=== PATIENT | female | born 1975 | race Caucasian/White ===

== ENCOUNTER 2024-10-29 15:10 | Inpatient (IN) | payer OTHER, SELFPAY ==
[2024-10-15 13:48] LABS: Hematocrit 40.3 % (37.0-47.0); Hemoglobin 13.6 g/dL (12.0-16.0); Mean Corp Hgb Conc. 33.7 g/dL (33.0-37.0); Mean Corpuscular Hgb 33.7 pg (27.0-31.0); Mean Platelet Volume 9.8 fL (7.4-10.4); Platelet Count 250 10^3/uL (130-400); Red Blood Cell Count 4.03 10^6/uL (4.20-5.40); Red Cell Dist. Width 14.2 % (11.5-14.5); White Blood Cell Count 8.6 10^3/uL (4.8-10.8)
[2024-10-15 14:27] VITALS: BMI 27.7
[2024-10-15 16:30] LABS: Blood Urea Nitrogen 31 mg/dl (7-17); Calcium 9.7 mg/dl (8.4-10.2); Carbon Dioxide 32 mmol/L (22-30); Chloride 90 mmol/L (98-107); Estimated Creatinine Clearance 17 ml/min; Glucose 84 mg/dl (70-99); Potassium 4.5 mmol/L (3.5-5.1); Sodium 140 mmol/L (135-145)
[2024-10-29] VITALS (15 sets, daily range): BP systolic 117–171; BP diastolic 64–92; BMI 27.7
--- NOTE | 2024-10-29 08:52 | HP.FOC2 ---
Focused History & Physical
Chief Complaint
HPI:
Chief Complaint: Incisional hernia
HPI / Indication for Planned Procedure: Patient is a 49-year-old female with a previous abdominal surgical history of having undergone robotic assisted laparoscopic reversal of end colostomy, and prior to that Bobby procedure. She has had a
large midline incisional hernia becoming increasingly symptomatic. Presents today for scheduled operative correction.
Relevant Past Medical History: Other (Hypertension, asthma, COPD, CKD, hypothyroidism, history of methamphetamine abuse, primary hyperaldosteronism,)
Relevant Social History: Tobacco Use
Relevant Family History: Negative
Relevant Past Surgical History: Positive for (Bobby procedure, reversal of end colostomy, AV fistula left upper extremity, AV fistula revision)
Review of Systems
Review of Pertinent Systems: All Systems Negative
Medication
See Medication form for detailed medications: Yes
Medication List (including Herbals & OTC):
carvedilol 25 mg tablet 25 mg PO .HS ON MOWEFR in the evening after dialysis for blood pressure 05/28/22
fluticasone 100 mcg-salmeterol 50 mcg/dose blistr powdr for inhalation (Advair Diskus) 1 inh inhalation R BID Lung/breathing issues 05/28/22
nifedipine 60 mg tablet,extended release 60 mg PO HS Blood pressure 05/28/22
atorvastatin 80 mg tablet 80 mg PO QPM High cholesterol 11/06/22
cyanocobalamin (vitamin B-12) 1,000 mcg tablet 1,000 mcg PO DAILY Supplement 11/06/22
levothyroxine 125 mcg tablet 125 mcg PO DAILY AT 0700 Thyroid 11/06/22
fluticasone propionate 50 mcg/actuation nasal spray,suspension 1 spray intranasal BID PRN Congestion 11/22/22
sucroferric oxyhydroxide 500 mg chewable tablet (Velphoro) 500 mg PO BID 04/09/23
carvedilol 25 mg tablet 25 mg PO .BID ON on for blood pressure 11/28/23
acetaminophen 325 mg tablet 650 mg (2 x 325 mg) PO Q6H PRN moderate pain 30 days #90 tabs 12/01/23
albuterol 90 mcg-budesonide 80 mcg/actuation HFA aerosol inhaler 2 inh inhalation ONCE PRN sob 10/22/24
Medications Reviewed: Yes
Allergies and Reactions
Patient has Allergies: No
Noted Allergies and Reactions:
Allergy/AdvReac Type Severity Reaction Status Date / Time
No Known Allergies Allergy Verified 10/22/24 13:07
Pertinent Physical Exam
All Other Systems: Negative
Head/Neck: Normal
Lungs: Normal
Heart: Normal
Abdomen: Other (Large midline laparotomy scar. Left side old ostomy surgical scar. Large midline incisional hernia soft, reducible, nontender.)
Extremities: Normal
Neurological: Normal
Diagnosis / Assessment
49-year-old female with large upper midline incisional hernia presenting for scheduled operative correction
Plan / Procedure
Open retrorectus mesh repair incisional hernias
Anesthesia/Sedation to be done by Anesthesia Provider: Yes
--- NOTE | 2024-10-29 09:01 | W.SUR.PREOP ---
Pre-Operative Surgical Note
-
I have examined this patient prior to the performance of the scheduled procedure.
The patient's condition is unchanged from the time of the current History and
Physical and the patient is able to undergo the scheduled procedure.
[2024-10-29] MEDS: TYLENOL 1000 MG PO (09:19)
--- NOTE | 2024-10-29 14:30 | W.IMMPOSTOP ---
Addendum entered and electronically signed by Colby Johnson MD 10/29/24 15:37:
The assistance of Sherley Rivera was required due to the complexity of the procedure. During the procedure Sherley Goins PA-c assisted with retraction for tissue exposure, and closure of the incision site with myself.
#[id number]
Original Note:
Surgical Immed Post Op Note
-
Primary Surgeon: Alex
Assisting Surgeon: Sherley Mancini PA-c
Pre-op Diagnosis: Incisional hernias
Post-op Diagnosis: Incisional hernias; spanning 18 cm in maximal length
Procedure Performed: Open retrorectus mesh repair incisional hernias; Bard soft mesh 35 cm x 16 cm
Anesthesia Type: GETA +0.25% Marcaine
Specimen / Cultures: None
Estimated Blood Loss: 22 mL
Complications: None immediate
Operative Findings: Numerous incisional hernia spanning essentially entire length of previous laparotomy incision. Total vertical length of hernias 18 cm, maximal with approaching 6 cm. Open retrorectus mesh repair. Bard soft mesh 35 cm
vertically by 16 cm wide. 4 transfascial sutures placed along lateral borders of mesh to region of semilunar line anteriorly. Closure of peritoneal lining/posterior sheath with 2-0 PDS STRATAFIX spiral suture. Closure of the linea alba from
xiphoid to pubis with #1 PDS STRATAFIX symmetric suture.
Plan: Routine postop care
N.p.o. except ice chips and sips tonight -no lysis of adhesions but monitor for postoperative ileus due to laparotomy
CURRICULUM DEVELOPMENT MANAGER for postoperative pain control initial 24 to 48 hours
Nephrology service consulted -end-stage renal disease on hemodialysis
Updated patient's significant other postoperatively via phone call.
[2024-10-29] MEDS: SUBLIMAZE 50 MCG IV (14:52)
[2024-10-29 15:30] LABS: Hematocrit 35.9 % (37.0-47.0); Hemoglobin 11.6 g/dL (12.0-16.0); Mean Corp Hgb Conc. 32.3 g/dL (33.0-37.0); Mean Corpuscular Hgb 33.6 pg (27.0-31.0); Mean Corpuscular Volume 104.1 fL (81.0-99.0); Mean Platelet Volume 9.2 fL (7.4-10.4); Platelet Count 244 10^3/uL (130-400); Red Blood Cell Count 3.45 10^6/uL (4.20-5.40); Red Cell Dist. Width 14.3 % (11.5-14.5); White Blood Cell Count 13.8 10^3/uL (4.8-10.8)
[2024-10-29 15:40] LABS: Blood Urea Nitrogen 77 mg/dl (7-17); Calcium 8.9 mg/dl (8.4-10.2); Carbon Dioxide 24 mmol/L (22-30); Chloride 94 mmol/L (98-107); Estimated Creatinine Clearance 9 ml/min; Glucose 99 mg/dl (70-99); Potassium 5.7 mmol/L (3.5-5.1); Sodium 133 mmol/L (135-145); eGFR 5.45
[2024-10-29] MEDS: DILAUDID PCA 30 IV (15:45)
--- NOTE | 2024-10-29 16:45 | PTCARENOTE ---
10/29- Patient arrives from PACU with Hydromorphone EMT DRIVER intact with no continuous rate. Patient self-administers boluses at 0.2mg per bolus with a max of 1.2mg/hour. Currently NPO and to remain NPO until morning as per Surgeon. Patient 98% on 2L
O2. Removed O2, and patient POX=96% on RA without issue. Incision site and surgical dressing CDI. Patient denies any current needs. She is aware of how to use EMT DRIVER pump.
[2024-10-29 16:52] LABS: Glucose - Point of Care 104 mg/dl (70-99)
--- NOTE | 2024-10-29 17:18 | W.CON.NEPH ---
Consultation
-
Date/Time Consultation Requested: 10/29/2024 at 11 AM
Date/Time Consultation Performed: 10/29/2024 at 4 PM
Requesting Provider: Dr. Johnson
Performing Provider: Dr Marcus Amin
Reason for Consultation: dialysis management
Medical History
-
Chief Complaint: end-stage renal disease
History of Present Illness:
The patient is a 48-year-old female with a
past medical history of end-stage renal disease since November
2022 following a COVID admission. She is maintained on dialysis
every Friday, Friday, and Friday at the [facility].
She has a history of diverticulitis and underwent Bobby's
resection with creation of short rectal stump in November of 2022,
which was subsequently complicated by stump dehiscence and an
incisional hernia at the colostomy site then robotic takedown of her colostomy site
and hernia repair.
She has had a large midline incisional hernia becoming increasingly symptomatic. Presents today for scheduled operative correction.
Real crisis intervention counselor for dialysis management
the patient was seen in the PACU postoperatively. She did well with no complications no significant blood loss. Discuss with the surgeon
Past Medical History
PAST MEDICAL HISTORY: Includes:
1. End-stage renal disease since November of 2022.
2. Multi-drug resistant hypertension.
3. History of diverticulitis with aforementioned complications from
November of 2022 with colostomy.
4. Anemia.
5. COPD.
6. Hypothyroidism.
7. History of stroke.
8. Hyperphosphatemia.
9. Left upper extremity AV fistula.
Social History
former smoker
Family History
No renal disease
Allergies / Home Medications
Allergy/AdvReac Type Severity Reaction Status Date / Time
No Known Allergies Allergy Verified 10/29/24 09:11
�Medication �Instructions �Recorded �Confirmed �Type
carvedilol 25 mg tablet 25 mg PO .HS ON MOWEFR in the 05/28/22 10/29/24 History
evening after dialysis for blood
pressure
fluticasone 100 mcg-salmeterol 50 1 inh inhalation R BID 05/28/22 10/29/24 History
mcg/dose blistr powdr for Lung/breathing issues
inhalation (Advair Diskus)
nifedipine 60 mg tablet,extended 60 mg PO HS Blood pressure 05/28/22 10/29/24 History
release
atorvastatin 80 mg tablet 80 mg PO QPM High cholesterol 11/06/22 10/29/24 History
cyanocobalamin (vitamin B-12) 1,000 mcg PO DAILY Supplement 11/06/22 10/29/24 History
1,000 mcg tablet
levothyroxine 125 mcg tablet 125 mcg PO DAILY AT 0700 Thyroid 11/06/22 10/29/24 History
fluticasone propionate 50 1 spray intranasal BID PRN 11/22/22 10/29/24 History
mcg/actuation nasal Congestion
spray,suspension
sucroferric oxyhydroxide 500 mg 500 mg PO BID 04/09/23 10/29/24 History
chewable tablet (Velphoro)
carvedilol 25 mg tablet 25 mg PO .BID ON [facility] on 11/28/23 10/29/24 History
Zfme-Baxle-Qlj-Sun for blood
pressure
acetaminophen 325 mg tablet 650 mg (2 x 325 mg) PO Q6H PRN 12/01/23 10/29/24 Rx
moderate pain 30 days #90 tabs
albuterol 90 mcg-budesonide 80 2 inh inhalation ONCE PRN sob 10/22/24 10/29/24 History
mcg/actuation HFA aerosol inhaler
Review of Systems
-
tired and fatigue mild abdominal pain
All other systems: Negative unless noted
Physical Exam
Vital Signs
Vital Signs
Temp Pulse Resp BP Pulse Ox
98.3 F 59 18 157/81 97
10/29/24 17:07 10/29/24 17:07 10/29/24 17:07 10/29/24 17:07 10/29/24 17:07
Lab Results
WBC 13.8 10^3/uL (4.8-10.8) H 10/29/24 15:14
RBC 3.45 10^6/uL (4.20-5.40) L 10/29/24 15:14
Hgb 11.6 g/dL (12.0-16.0) L 10/29/24 15:14
Hct 35.9 % (37.0-47.0) L 10/29/24 15:14
Plt Count 244 10^3/uL (130-400) 10/29/24 15:14
Sodium 133 mmol/L (135-145) L 10/29/24 15:14
Potassium 5.7 mmol/L (3.5-5.1) H 10/29/24 15:14
Chloride 94 mmol/L (98-107) L 10/29/24 15:14
Carbon Dioxide 24 mmol/L (22-30) 10/29/24 15:14
BUN 77 mg/dl (7-17) H 10/29/24 15:14
Creatinine 8.3 mg/dL (0.6-1.0) H* 10/29/24 15:14
eGFR 5.45 10/29/24 15:14
Glucose 99 mg/dl (70-99) 10/29/24 15:14
Calcium 8.9 mg/dl (8.4-10.2) 10/29/24 15:14
Physical Exam
General no acute distress
HEENT no cephalic atraumatic extraocular muscle intact no scleral icterus no JVD neck supple
lungs clear to auscultation bilateral
heart regular S1-S2 positive
abdomen incisional wound
extremities no edema pulses present bilateral
Neurologically nonfocal alert and oriented x 3
Skin no lesions no abrasions no petechiae
Psych normal affect no bizarre behavior
Data Reviewed
-
Labs: Labs Reviewed by me
Assessment/Plan
-
Impression:
Status post hernia repair
End-stage renal disease Friday [facility] dialysis unit
Multidrug resistant hypertension
Anemia of chronic kidney disease
History of COPD
Hypothyroidism
History of CVA
Hyperphosphatemia
Left upper extremity AV fistula
Plan:
- Dialysis schedule (MWF)
will do dialysis tomorrow off schedule as patient was in the OR today
potassium 5.7 will temporize as needed
reviewed outpatient dialysis records her EDW is 84.5 kg
heparin free postsurgical
see dialysis orders
discuss with dialysis nurse
[2024-10-29] MEDS: OFIRMEV 100 IV (18:34)
[2024-10-29] MEDS: NSS 1000 IV (18:34)
[2024-10-29] MEDS: ADVAIR HFA 45/21 MCG INHALER 2 PUFF INH (20:29)
[2024-10-29] MEDS: PROCARDIA XL (EXTENDED RELEASE) 60 MG PO (21:06)
[2024-10-29] MEDS: COREG 25 MG PO (21:08)
[2024-10-29 21:20] LABS: Glucose - Point of Care 113 mg/dl (70-99)
[2024-10-30] MEDS: OFIRMEV 100 IV ×3 (00:07→12:22)
[2024-10-30 06:00] VITALS: BMI 29.5
[2024-10-30] MEDS: SYNTHROID 125 MCG PO (06:02)
[2024-10-30 07:30] VITALS: BP 176/102
[2024-10-30] MEDS: ADVAIR HFA 45/21 MCG INHALER 2 PUFF INH ×2 (08:07→20:07)
[2024-10-30 08:34] LABS: Hematocrit 33.1 % (37.0-47.0); Mean Corp Hgb Conc. 33.2 g/dL (33.0-37.0); Mean Corpuscular Hgb 33.8 pg (27.0-31.0); Mean Corpuscular Volume 101.8 fL (81.0-99.0); Mean Platelet Volume 9.4 fL (7.4-10.4); Platelet Count 241 10^3/uL (130-400); Red Blood Cell Count 3.25 10^6/uL (4.20-5.40); Red Cell Dist. Width 14.3 % (11.5-14.5); White Blood Cell Count 17.6 10^3/uL (4.8-10.8)
[2024-10-30 08:44] LABS: Blood Urea Nitrogen 88 mg/dl (7-17); Calcium 9.2 mg/dl (8.4-10.2); Carbon Dioxide 16 mmol/L (22-30); Chloride 94 mmol/L (98-107); Estimated Creatinine Clearance 9 ml/min; Glucose 91 mg/dl (70-99); Sodium 129 mmol/L (135-145); eGFR 4.69
[2024-10-30] MEDS: NSS (PRESERVATIVE FREE) 10 ML IV (09:09)
[2024-10-30] MEDS: PROTONIX IV 40 MG IV (09:09)
--- NOTE | 2024-10-30 09:50 | W.PN.NEPH.HD ---
Assessment
-
Regular schedule Friday will get dialysis again tomorrow as we will on a holiday schedule
Progress Note - Hemodialysis
-
Date of Service: October 30, 2024
Duration: 3 hours (3.5)
Potassium Bath: 2
Calcium Bath: 2.5
Opti-Dialyzer: 160
Ultrafiltration: EDW
Blood Flow: 400
Dialysate Flow: 600
Heparin: No
EPO: Yes
[2024-10-30] MEDS: MANNITOL 25% 12.5 GRAMS IV (10:35)
--- NOTE | 2024-10-30 11:50 | W.PN.GS2 ---
Addendum entered and electronically signed by Albert Brandt MD 10/30/24 13:07:
Patient seen and examined. Agree with assessment plan as documented below.
Pain well-controlled. No nausea or vomiting. No flatus or BM. No ambulation postop. Afebrile. Currently on HD.
Gen: NAD
Abd: soft, NT/ND, non-peritoneal, binder in place and on HD (no taken down)
Patient is a 49 yo F with h/o ESRD on HD and prior Bobby's with subsequent colostomy reversal presenting for management of incisional hernias
POD #1 Open retrorectus mesh repair incisional hernia; Bard soft mesh 35 cm x 16 cm.
AFVSS, BP elevated this am
Recovering well. No major postoperative concerns.
--Trial of clears
--Continue PARK NATURALIST in the immediate post operative period
--Continue home meds
--OOB/Ambulate
--Nephrology following for HD
--Protonix for GI ppx
--Heparin SQ for VTE ppx
Original Note:
Today's Communication / Plan
-
Trial of clears
OOB/increase activity
Continue PARK NATURALIST
Assessment / Plan
-
49 yo female with h/o ESRD on HD and prior Bobby's with subsequent colostomy reversal presenting for management of incisional hernias
POD #1 Open retrorectus mesh repair incisional hernia; Bard soft mesh 35 cm x 16 cm.
AFVSS, BP elevated this am
Pain well controlled with PARK NATURALIST
Reactive leukocytosis noted
Await bowel recovery
--Trial of clears
--Continue PARK NATURALIST in the immediate post operative period
--Continue home meds
--OOB/Ambulate
--Nephrology following for HD
--Protonix for GI ppx
--Heparin SQ for VTE ppx
Subjective Data
-
Date of Service: October 30, 2024
Patient seen and examined at bedside with Dr. Brandt. On HD at bedside. Denies n/v. Not yet passing flatus. Good pain control with PARK NATURALIST.
Objective Data
-
Intake and Output
10/29/24 10/30/24 10/31/24
06:59 06:59 06:59
Intake Total 780 / 780
Output Total
Balance 755 / 755
Intake:
Oral fluids 480 / 480
IV fluids (Total) 300 / 300
NSS 100 / 100
Output:
Urine, Bray
Vital Signs
Temp Pulse Resp BP Pulse Ox
98.3 F 72 18 176/102 95
10/30/24 07:30 10/30/24 08:09 10/30/24 08:09 10/30/24 07:30 10/30/24 08:09
Lab Results
10/30/24 08:18
10/30/24 08:18
Calcium 9.2 mg/dl (8.4-10.2) 10/30/24 08:18
Physical Exam
-
GENERAL/NEURO: Awake, Alert, no distress
CHEST: Unlabored breathing
ABDOMEN: Soft, minimal generalized tenderness, Non-Distended, incision with intact silver dressing
[2024-10-30 12:20] VITALS: BP 113/65
[2024-10-30] MEDS: HEPARIN 5000 UNITS SC ×2 (12:22→19:47)
[2024-10-30] MEDS: COREG 25 MG PO ×2 (12:23→19:48)
--- NOTE | 2024-10-30 14:18 | CM ---
CM reviewed chart, patient seen bedside, initial assessment completed. Patient resides with her and brother in a single story home, three steps to enter. Patient denies use of DME, reports history of [facility] in past, denies SNF. Patient
confirms PCP Dr. Harris, pharmacy [facility], confirms prescription coverage. Patient denies insecurities at home. Patient confirms HD schedule at [facility] in [place]: M, W, Fr, 6:25 a.m. chair time (P: [phone], F: [phone]-
will need clinicals faxed upon d/c). General Surgery following. CM will continue to follow for all discharge planning needs.
Plan; home with family, outpatient HD, watch for VN needs.
[2024-10-30 15:07] VITALS: BP 112/68
[2024-10-30] MEDS: PROCARDIA XL (EXTENDED RELEASE) 60 MG PO (21:14)
[2024-10-30] MEDS: NSS 1000 IV (23:45)
[2024-10-30 23:55] VITALS: BP 124/72
[2024-10-31 06:00] VITALS: BMI 28.8
[2024-10-31] MEDS: SYNTHROID 125 MCG PO (06:54)
[2024-10-31] MEDS: ADVAIR HFA 45/21 MCG INHALER 2 PUFF INH ×2 (07:51→19:44)
[2024-10-31 08:03] VITALS: BP 132/73
[2024-10-31 08:06] LABS: Hematocrit 31.6 % (37.0-47.0); Mean Corp Hgb Conc. 31.6 g/dL (33.0-37.0); Mean Corpuscular Hgb 33.6 pg (27.0-31.0); Mean Platelet Volume 9.5 fL (7.4-10.4); Platelet Count 211 10^3/uL (130-400); Red Blood Cell Count 2.98 10^6/uL (4.20-5.40); Red Cell Dist. Width 14.6 % (11.5-14.5); White Blood Cell Count 9.3 10^3/uL (4.8-10.8)
[2024-10-31] MEDS: HEPARIN 5000 UNITS SC ×2 (08:09→20:34)
[2024-10-31] MEDS: NSS (PRESERVATIVE FREE) 10 ML IV (08:09)
[2024-10-31] MEDS: COREG 25 MG PO ×2 (08:09→20:34)
[2024-10-31] MEDS: PROTONIX IV 40 MG IV (08:09)
[2024-10-31 08:34] LABS: Blood Urea Nitrogen 48 mg/dl (7-17); Carbon Dioxide 26 mmol/L (22-30); Chloride 92 mmol/L (98-107); Estimated Creatinine Clearance 11 ml/min; Glucose 82 mg/dl (70-99); Sodium 131 mmol/L (135-145); eGFR 6.06
--- NOTE | 2024-10-31 10:15 | W.PN.GS2 ---
Addendum entered and electronically signed by Albert Brandt MD 10/31/24 10:30:
Patient seen and examined. Agree with assessment plan as documented below.
Reports incisional soreness particularly with movement. No nausea or vomiting. No flatus or BM. No fevers.
Gen: NAD
Abd: soft, tender to palpation overlying incision, ND, obese, non-peritoneal, midline dressing with some shadowing, binder in place
Patient is a 49 yo female with h/o ESRD on HD and prior Bobby's with subsequent colostomy reversal presenting for management of incisional hernias
POD #2 Open retrorectus mesh repair incisional hernia; Bard soft mesh 35 cm x 16 cm.
AFVSS, BP elevated this am
Pain well controlled with INDUCTOR TESTER, usage decreasing over the last 24hours, transition to PO
Leukocytosis resolved
H/O chronic anemia secondary to ESRD
Await bowel recovery, tolerating clears thus far
--Advance to full liquids
--Transition to PO Tylenol, Oxycodone and IV Dilaudid PRN for pain
--Continue home meds
--OOB/Ambulate
--Nephrology following for HD
--Protonix for GI ppx
--Heparin SQ for VTE ppx
Original Note:
Today's Communication / Plan
-
FLD
PRN analgesics
Assessment / Plan
-
49 yo female with h/o ESRD on HD and prior Bobby's with subsequent colostomy reversal presenting for management of incisional hernias
POD #2 Open retrorectus mesh repair incisional hernia; Bard soft mesh 35 cm x 16 cm.
AFVSS, BP elevated this am
Pain well controlled with INDUCTOR TESTER, usage decreasing over the last 24hours
Leukocytosis resolved
H/O chronic anemia secondary to ESRD
Await bowel recovery, tolerating clears thus far
--Advance to full liquids
--Trend labs
--Transition to PO Tylenol, Oxycodone and IV dilaudid prn for pain
--Continue home meds
--OOB/Ambulate
--Nephrology following for HD
--Protonix for GI ppx
--Heparin SQ for VTE ppx
Subjective Data
-
Date of Service: October 31, 2024
Patient seen and examined at bedside with Dr. Brandt. Pain well managed. Not much bowel activity yet including flatus. Denies n/v. Tolerating clears.
Objective Data
-
Intake and Output
10/30/24 10/31/24 11/01/24
06:59 06:59 06:59
Intake Total 780 / 780 240 / 240
Output Total 25 / 25
Balance 755 / 755 240 / 240
Intake:
Oral fluids 480 / 480 240 / 240
IV fluids (Total) 300 / 300
NSS 100 / 100
Output:
Urine, Bray 25 / 25
Other:
Number of approximated MODERATE 2
amounts of urine
Vital Signs
Temp Pulse Resp BP Pulse Ox
97.7 F 82 18 132/73 96
10/31/24 08:03 10/31/24 08:09 10/31/24 08:03 10/31/24 08:09 10/31/24 08:03
Lab Results
10/31/24 07:18
10/31/24 07:18
Calcium 9.0 mg/dl (8.4-10.2) 10/31/24 07:18
Physical Exam
-
GENERAL/NEURO: Awake, Alert, no distress
CHEST: Unlabored breathing
ABDOMEN: Soft, minimal generalized tenderness, Non-Distended, incision with intact silver dressing
[2024-10-31] MEDS: DILAUDID 1 MG IV ×3 (11:25→20:34)
--- NOTE | 2024-10-31 13:25 | W.PN.NEPH.HD ---
Progress Note - Hemodialysis
-
Date of Service: October 31, 2024
Duration: 3 hours (3.5)
Potassium Bath: 2
Calcium Bath: 2.5
Opti-Dialyzer: 160
Ultrafiltration: EDW
Blood Flow: 400
Dialysate Flow: 600
Heparin: No
EPO: Yes
[2024-10-31 15:04] VITALS: BP 140/78
[2024-10-31] MEDS: PROCARDIA XL (EXTENDED RELEASE) 60 MG PO (22:50)
[2024-10-31 23:22] VITALS: BP 145/83
[2024-11-01] MEDS: DILAUDID 1 MG IV ×4 (00:29→18:02)
[2024-11-01 06:00] VITALS: BMI 28.2
[2024-11-01] MEDS: SYNTHROID 125 MCG PO (06:35)
[2024-11-01 07:39] VITALS: BP 130/75
[2024-11-01 07:47] LABS: Hematocrit 32.4 % (37.0-47.0); Hemoglobin 10.7 g/dL (12.0-16.0); Mean Corpuscular Hgb 33.6 pg (27.0-31.0); Mean Corpuscular Volume 101.9 fL (81.0-99.0); Mean Platelet Volume 9.5 fL (7.4-10.4); Platelet Count 211 10^3/uL (130-400); Red Blood Cell Count 3.18 10^6/uL (4.20-5.40); Red Cell Dist. Width 14.4 % (11.5-14.5); White Blood Cell Count 8.7 10^3/uL (4.8-10.8)
[2024-11-01] MEDS: ADVAIR HFA 45/21 MCG INHALER 2 PUFF INH ×2 (08:00→20:05)
[2024-11-01 08:24] LABS: Blood Urea Nitrogen 30 mg/dl (7-17); Calcium 9.5 mg/dl (8.4-10.2); Carbon Dioxide 28 mmol/L (22-30); Chloride 94 mmol/L (98-107); Estimated Creatinine Clearance 14 ml/min; Glucose 87 mg/dl (70-99); Potassium 4.2 mmol/L (3.5-5.1); Sodium 132 mmol/L (135-145); eGFR 8.74
[2024-11-01] MEDS: NSS (PRESERVATIVE FREE) 10 ML IV (08:48)
[2024-11-01] MEDS: PROTONIX IV 40 MG IV (08:48)
[2024-11-01] MEDS: HEPARIN 5000 UNITS SC ×2 (08:49→21:32)
--- NOTE | 2024-11-01 09:11 | W.PN.GS2 ---
Addendum entered and electronically signed by MINA James 11/01/24 12:33:
Hyponatremia in setting of ESRD: Improved s/p most recent HD. Nephrology following for electrolyte management/HD
Addendum entered and electronically signed by Albert Brandt MD 11/01/24 09:30:
Patient seen and examined. Agree with assessment plan as documented below.
Abdominal discomfort, but controlled with oral medications (has transitioned off ENGINEERING ANALYST). No nausea or vomiting. Reports passing flatus, no BM. Afebrile.
Gen: NAD
Abd: soft, NT/ND, non-peritoneal
Patient is a 49 yo F with h/o ESRD on HD and prior Bobby's with subsequent colostomy reversal presenting for management of incisional hernias
POD #3 Open retrorectus mesh repair incisional hernia; Bard soft mesh 35 cm x 16 cm.
AFVSS
Pain well controlled off ENGINEERING ANALYST
CBC stable, no leukocytosis
ESRD with next HD tomorrow
+flatus, tolerating FLD
--Advance to regular diet
--Transition to PO Tylenol, Oxycodone and IV Dilaudid PRN for pain
--Continue home meds
--OOB/Ambulate
--Nephrology following for HD
--Protonix for GI ppx
--Heparin SQ for VTE ppx
Tentative d/c tomorrow after HD if tolerating diet and pain controlled
Original Note:
Today's Communication / Plan
-
Advance diet
Assessment / Plan
-
49 yo female with h/o ESRD on HD and prior Bobby's with subsequent colostomy reversal presenting for management of incisional hernias
POD #3 Open retrorectus mesh repair incisional hernia; Bard soft mesh 35 cm x 16 cm.
AFVSS
Pain well controlled off ENGINEERING ANALYST
CBC stable, no leukocytosis
ESRD with next HD tomorrow
+flatus, tolerating FLD
--Advance to regular diet
--Transition to PO Tylenol, Oxycodone and IV dilaudid prn for pain
--Continue home meds
--OOB/Ambulate
--Nephrology following for HD
--Protonix for GI ppx
--Heparin SQ for VTE ppx
Tentative d/c tomorrow after HD if tolerating diet and pain controlled
Subjective Data
-
Date of Service: November 01, 2024
Patient seen and examined at bedside with Dr. Brandt. Pain present but well managed. Denies n/v. Passing a lot of flatus, no BM as of yet. Tolerating liquid diet.
Objective Data
-
Intake and Output
10/31/24 11/01/24 11/02/24
06:59 06:59 06:59
Intake Total 240 / 240 960 / 960
Balance 240 / 240 960 / 960
Intake:
Oral fluids 240 / 240 960 / 960
Other:
Number of approximated MODERATE 2 3
amounts of urine
Vital Signs
Temp Pulse Resp BP Pulse Ox
98.5 F 88 16 130/75 94
11/01/24 07:39 11/01/24 08:02 11/01/24 08:02 11/01/24 07:39 11/01/24 08:02
Lab Results
11/01/24 07:16
11/01/24 07:16
Calcium 9.5 mg/dl (8.4-10.2) 11/01/24 07:16
Physical Exam
-
GENERAL/NEURO: Awake, Alert, no distress
CHEST: Unlabored breathing
ABDOMEN: Soft, minimal generalized tenderness, Non-Distended, incision with intact silver dressing
--- NOTE | 2024-11-01 10:31 | PN.CDI ---
CDI
- -
CDI:
Physician Documentation Request
Admit Date: 10/29/24 15:10
Dear General Surgery,
Patient admitted for hernia repair.
Laboratory Tests
10/29/24 10/30/24 10/31/24
15:14 08:18 07:18
Sodium 133 L 129 L 131 L
11/01/24
07:16
Sodium 132 L
Based on the above, could you clarify in the progress notes, the appropriate diagnosis, if significant, that supports the above abnormalities and additional evaluation, monitoring and/or treatment rendered:
Hyponatremia
Abnormal lab value insignificant
Other
Use of terms such as suspected, likely, concern for, or probable (associated with a specific diagnosis that is being evaluated, monitored, or treated as if it exists) are acceptable and can be coded in the inpatient setting, when documented at the
time of discharge.
Thank you,
Pascale Hays RN, BSN
CDI Specialist
Available via [place] text
Please use your independent medical judgment in providing your response.
--- NOTE | 2024-11-01 11:55 | CM ---
CM reviewed chart, patient seen bedside with family. Patient denies needs from CM at this time. Clinicals faxed to [facility] [phone]. Per General Surgery note, tentative discharge tomorrow after dialysis. CM will continue to follow for
all discharge planning needs.
Plan; home with family, outpatient HD
[2024-11-01] MEDS: ROXICODONE 5 MG PO ×2 (13:17→21:39)
[2024-11-01 16:21] VITALS: BP 160/96
--- NOTE | 2024-11-01 18:25 | W.PN.NEPH.PH ---
Today's Communication / Plan
-
HD tomorrow
Assessment/Plan
-
Impression:
Status post hernia repair
End-stage renal disease Friday [facility] dialysis unit
Multidrug resistant hypertension
Anemia of chronic kidney disease
History of COPD
Hypothyroidism
History of CVA
Hyperphosphatemia
Left upper extremity AV fistula
Plan:
HD tomorrow, off schedule
Bp stable
tolerating diet
resume phos binder soon
d/c plan
-
-
Date of Service: November 01, 2024
CC / HPI / ROS
-
Chief Complaint:
ESRD
History of Present Illness:
s/p incisional hernia repair 10/29
BP stable
hb stable
on RA, no fever
Review of Systems:
no sob, no nv/
able to pass flatus
Labs
-
Labs:
WBC 8.7 10^3/uL (4.8-10.8) 11/01/24 07:16
RBC 3.18 10^6/uL (4.20-5.40) L 11/01/24 07:16
Hgb 10.7 g/dL (12.0-16.0) L 11/01/24 07:16
Hct 32.4 % (37.0-47.0) L 11/01/24 07:16
Plt Count 211 10^3/uL (130-400) 11/01/24 07:16
Sodium 132 mmol/L (135-145) L 11/01/24 07:16
Potassium 4.2 mmol/L (3.5-5.1) 11/01/24 07:16
Chloride 94 mmol/L (98-107) L 11/01/24 07:16
Carbon Dioxide 28 mmol/L (22-30) 11/01/24 07:16
BUN 30 mg/dl (7-17) H 11/01/24 07:16
Creatinine 5.6 mg/dL (0.6-1.0) H* 11/01/24 07:16
eGFR 8.74 11/01/24 07:16
Glucose 87 mg/dl (70-99) 11/01/24 07:16
Calcium 9.5 mg/dl (8.4-10.2) 11/01/24 07:16
Physical Exam
-
Vital Signs:
Vital Signs
Temp Pulse Resp BP Pulse Ox
98.1 F 88 18 160/96 99
11/01/24 16:21 11/01/24 16:21 11/01/24 16:21 11/01/24 16:21 11/01/24 16:21
Cardiovascular:: Regular rate and rhythm
Respiratory:: Bilateral: CTA
Lung Excursion:: Normal
Abdomen:: Soft and Tender (surg site)
Extremity Edema:: None: Bilateral:
Bray Catheter: No
[2024-11-01] MEDS: PROCARDIA XL (EXTENDED RELEASE) 60 MG PO (21:32)
[2024-11-01] MEDS: COREG 25 MG PO (21:34)
[2024-11-01 23:26] VITALS: BP 163/87
[2024-11-02] MEDS: ROXICODONE 5 MG PO ×3 (01:56→12:23)
[2024-11-02 06:00] VITALS: BMI 28.2
[2024-11-02] MEDS: SYNTHROID 125 MCG PO (06:17)
[2024-11-02] MEDS: ADVAIR HFA 45/21 MCG INHALER INH (07:35)
[2024-11-02 07:51] VITALS: BP 148/87
[2024-11-02] MEDS: HEPARIN 500 UNITS IV ×2 (08:05→09:05)
[2024-11-02] MEDS: PROTONIX IV 40 MG IV (08:17)
[2024-11-02] MEDS: HEPARIN 5000 UNITS SC (08:18)
[2024-11-02] MEDS: NSS (PRESERVATIVE FREE) 10 ML IV (08:18)
[2024-11-02] MEDS: COREG PO (08:54)
[2024-11-02 09:02] LABS: Hematocrit 30.8 % (37.0-47.0); Hemoglobin 10.5 g/dL (12.0-16.0); Mean Corp Hgb Conc. 34.1 g/dL (33.0-37.0); Mean Corpuscular Hgb 34.2 pg (27.0-31.0); Mean Corpuscular Volume 100.3 fL (81.0-99.0); Mean Platelet Volume 9.7 fL (7.4-10.4); Platelet Count 215 10^3/uL (130-400); Red Blood Cell Count 3.07 10^6/uL (4.20-5.40); Red Cell Dist. Width 14.1 % (11.5-14.5); White Blood Cell Count 8.3 10^3/uL (4.8-10.8)
[2024-11-02 09:46] LABS: Blood Urea Nitrogen 46 mg/dl (7-17); Calcium 9.2 mg/dl (8.4-10.2); Carbon Dioxide 23 mmol/L (22-30); Chloride 92 mmol/L (98-107); Estimated Creatinine Clearance 10 ml/min; Glucose 97 mg/dl (70-99); Potassium 3.9 mmol/L (3.5-5.1); Sodium 130 mmol/L (135-145); eGFR 5.87
[2024-11-02] MEDS: FLEXBUMIN 25% FOR HEMODIALYSIS 12.5 GRAMS IV (10:01)
--- NOTE | 2024-11-02 10:12 | W.PN.GS2 ---
Today's Communication / Plan
-
DC
Assessment / Plan
-
49 yo female with h/o ESRD on HD and prior Bobby's with subsequent colostomy reversal presenting for management of incisional hernias
POD #4 Open retrorectus mesh repair incisional hernia; Bard soft mesh 35 cm x 16 cm.
AFVSS
Pain well controlled off CLINICAL IMPLEMENTATION SPECIALIST
CBC stable, no leukocytosis
ESRD with next HD tomorrow
+flatus, tolerating FLD
--Advance to regular diet
--Transition to PO Tylenol, Oxycodone and IV dilaudid prn for pain
--Continue home meds
--OOB/Ambulate
--Nephrology following for HD
--Protonix for GI ppx
--Heparin SQ for VTE ppx
DC home after HD
Subjective Data
-
Date of Service: November 02, 2024
AFVSS, pain controlled, preston PO, passing flatus, denies n.v
Objective Data
-
Intake and Output
11/01/24 11/02/24 11/03/24
06:59 06:59 06:59
Intake Total 960 / 960 1080 / 1080
Balance 960 / 960 1080 / 1080
Intake:
Oral fluids 960 / 960 1080 / 1080
Other:
Number of approximated MODERATE 3 3
amounts of urine
Vital Signs
Temp Pulse Resp BP Pulse Ox
98 F 86 20 148/87 99
11/02/24 07:51 11/02/24 07:51 11/02/24 07:51 11/02/24 07:51 11/02/24 07:51
Lab Results
11/02/24 08:45
11/02/24 08:45
Calcium 9.2 mg/dl (8.4-10.2) 11/02/24 08:45
Physical Exam
-
Gen: NAD
bd: soft, obese, binder in place, aquacel with mild strikethrough
--- NOTE | 2024-11-02 10:13 | W.DS.TRANS ---
DC Summary - Flying I Instructor
-
Discharge Instructions:
Sleep Apnea Risk Low
Discharge Diagnosis/Procedures Incisional hernia. Open retrorectus mesh repair
of incisional hernia
Diet As tolerated,Regular
Additional Diets Smaller meals if experiencing abdominal bloating
/distention
Activity No strenuous activity
Additional Activity No lifting over 20 pounds for 6 weeks
postoperatively. Walking, standing, stairs and
routine daily light activities are all okay as
tolerated.
Driving Restrictions No driving if utilizing narcotics.
Bathing Restrictions OK to Shower
Wound Care May leave incision open to air or cover with dry
gauze dressing if drainage. Steri-Strips
typically peel off within 1 to 2 weeks of
surgery.
Instructions:
Stand-Alone Forms:
Changes to Home Medications: No
Discharge Medications:
DC Medications w/original date entered in [email or web address]
carvedilol 25 mg tablet 25 mg PO .HS ON MOWEFR in the evening after dialysis for blood pressure 05/28/22
fluticasone 100 mcg-salmeterol 50 mcg/dose blistr powdr for inhalation (Advair Diskus) 1 inh inhalation R BID Lung/breathing issues 05/28/22
nifedipine 60 mg tablet,extended release 60 mg PO HS Blood pressure 05/28/22
atorvastatin 80 mg tablet 80 mg PO QPM High cholesterol 11/06/22
cyanocobalamin (vitamin B-12) 1,000 mcg tablet 1,000 mcg PO DAILY Supplement 11/06/22
levothyroxine 125 mcg tablet 125 mcg PO DAILY AT 0700 Thyroid 11/06/22
fluticasone propionate 50 mcg/actuation nasal spray,suspension 1 spray intranasal BID PRN Congestion 11/22/22
sucroferric oxyhydroxide 500 mg chewable tablet (Velphoro) 500 mg PO BID Hyperphosphatemia 04/09/23
carvedilol 25 mg tablet 25 mg PO .BID ON TUTHSASU on for blood pressure 11/28/23
acetaminophen 325 mg tablet 650 mg (2 x 325 mg) PO Q6H PRN moderate pain 30 days #90 tabs 12/01/23
albuterol 90 mcg-budesonide 80 mcg/actuation HFA aerosol inhaler 2 inh inhalation ONCE PRN sob 10/22/24
Home Medication Changes
Pending Results: No
[2024-11-02 11:29] VITALS: BP 135/84
--- NOTE | 2024-11-02 11:39 | CM ---
Patient seen at bedside. Patient confirmed she has a ride home, currently getting HD. No needs anticipated. CM will continue to follow for discharge planning needs.
Plan; home with no needs anticipated
--- NOTE | 2024-11-02 11:57 | W.PN.NEPH.HD ---
Assessment
-
pt seen during HD
vitals stable
UF as tolerates
AVF function swell
return to home unit on
Progress Note - Hemodialysis
-
Date of Service: November 02, 2024
Duration: 30 minutes and 3 hours
Potassium Bath: 2
Calcium Bath: 2.5
Opti-Dialyzer: 160
Ultrafiltration: Other (2.5-3kg)
Blood Flow: 400
Dialysate Flow: 600
Heparin: yesx2
EPO: no
== END 2024-11-02 14:58 | disposition home or self-care (01) | DRG 353 ==
LOC: 4 WEST ACU 15:10
PROVIDERS: Internal Medicine; ADMITTING PHYSICIAN Surgery; CONSULT PHYSICIAN Internal Medicine Nephrology; FAMILY PHYSICIAN Family Medicine
PROC: 0WUF0JZ Supplement Abdominal Wall with Synthetic Substitute, Open Approach (ICD-10-PCS; 2024-10-29)
PROC: 5A1D70Z Performance of Urinary Filtration, Intermittent, Less than 6 Hours Per Day (ICD-10-PCS; 2024-10-30)
DX: K43.2 Incisional hernia without obstruction or gangrene (principal); N18.6 End stage renal disease; I12.0 Hypertensive chronic kidney disease with stage 5 chronic kidney disease or end stage renal disease; E87.1 Hypo-osmolality and hyponatremia; D63.1 Anemia in chronic kidney disease; E83.39 Other disorders of phosphorus metabolism; I1A.0 Resistant hypertension; E03.9 Hypothyroidism, unspecified; J44.89 Other specified chronic obstructive pulmonary disease; D72.829 Elevated white blood cell count, unspecified; E26.09 Other primary hyperaldosteronism; F15.11 Other stimulant abuse, in remission; Z99.2 Dependence on renal dialysis; Z86.73 Personal history of transient ischemic attack (TIA), and cerebral infarction without residual deficits; Z87.891 Personal history of nicotine dependence; Z79.890 Hormone replacement therapy
CPT/HCPCS: 36415; 80048; 82962; 85027; 86850; 86900; 86901; 93005; 94640; C1729; C1781; G0257; P9047

== ENCOUNTER 2024-12-29 15:16 | Inpatient (IN) | payer OTHER, SELFPAY ==
[2024-12-29] VITALS (48 sets, daily range): BP systolic 131–232; BP diastolic 79–143
--- NOTE | 2024-12-29 11:39 | ED.GENMED ---
History of Present Illness
<Nanci Mcdonough PA-C - Last Filed: 12/29/24 21:08>
General
Chief Complaint: Abdominal Symptoms
Source: patient
Exam Limitations: none
Time Seen by Provider: 12/29/24 11:37
Nursing documentation reviewed up to this point in time: agreed with
History of Present Illness
History of Present Illness:
This is a 49-year-old female with a past medical history of end-stage renal disease on dialysis, hypertension, hyperlipidemia, COPD who presents emergency department today with concerns of shortness of breath, nausea and vomiting, and generalized
weakness for the past 2 days. Patient reports that she receives dialysis in [place] and her it security consultant is Dr. Walsh with [facility]. Patient reports that she is post to get dialysis 2 days ago and gets dialysis Friday
however she states that she started to develop a bad cold and she was too short of breath to go. Patient states that she is going to dialysis in the past when she is felt this way and she is been sent to the emergency department with COPD
exacerbation. Patient states that she then started to develop body aches, generalized weakness, decreased appetite, now states that she has had diarrhea since last night and when she tries to eat something, she will have episodes of vomiting. She
also states that she has had intermittent tactile fevers and chills. Today when she tried to go to dialysis, she felt like she was too weak to move so she reported to the emergency department. Her last dialysis treatment was on December 24.
Past History
<Nanci Mcdonough PA-C - Last Filed: 12/29/24 21:08>
Past History
ED Past Medical History: Asthma (emphysema), COPD, HTN, Renal failure, Hypothyroidism and Other (Emphysema, pneumonia)
ED Past Surgical History: None
Social History
Tobacco: Former smoker
Alcohol: Occasional (Vodka one glass)
Drug: None
Personal: Single
Living: with family
Employment: Employed
Family History
Family History: Hypertension
Review of Systems
<Nanci Mcdonough PA-C - Last Filed: 12/29/24 21:08>
Review of Systems
All Other Systems: ROS reviewed and negative except as documented in HPI and ROS
Phy Exam
<Nanci Mcdonough PA-C - Last Filed: 12/29/24 21:08>
Physical Exam
Physical Exam:
General: Patient is well appearing and in no acute distress; non-toxic
Skin: Warm and dry, no rashes or lesions
Head: Normocephalic, atraumatic
Eyes: Sclera non-icteric. EOMs intact.
Cardiac: Tachycardia noted otherwise regular rhythm, no murmurs
Peripheral Vascular: No lower extremity swelling or edema
Pulm: Wheezing heard in lower lung bases, normal respiratory rate, 99% on room air
Abdomen: No abdominal tenderness to palpation
Neuro: CN II-XII intact, no focal neurologic deficits.
Psychiatric: Appropriate mood and affect.
Course
<Nanci Mcdonough PA-C - Last Filed: 12/29/24 21:08>
Orders/Labs/Results
Orders:
Orders
12/29/24 11:49
Electrocardiogram (*1) Urgent
Reason for Study: Vertigo / Dizzy
Cardiac Monitoring- Treatment ONCE
EKG- Treatment ONCE
Levalbuterol [Xopenex 1.25 mg Inhalant Solution] 1.25 mg INH R NOW STA
12/29/24 11:51
CR Chest - 2 Views Urgent
Comment:
Reason For Exam: shortness of breath
12/29/24 12:09
COVID-19 Antigen Urgent
Source: Nasal Swab
Complete Blood Count/With Diff Urgent
Influenza A+B Rapid Molecular Urgent
OLGA Source: Nasal Swab
Specimen Description:
12/29/24 12:48
Labetalol HCl [Trandate] 10 mg IV NOW STA
12/29/24 13:20
Comprehensive Metabolic Panel Urgent
Troponin I Urgent
12/29/24 13:45
NEPHROLOGY CONSULT Urgent
Consulting Provider: Marcus Amin
Was physician already notified: Yes
12/29/24 14:07
Mannitol 25% 12.5 grams IV HD-Q1HPRN PRN
Hemodialysis treatment As Directed
Treatment date:: 12/29/24
Treatment type: Hemodialysis
Ultrafiltration (kg): 3-4
Treatment time (duration): 3 hours 30 minutes
Use dialysis access:: AVF
Dialyzer:: Optiflux 160
Blood flow rate minimum: 350
Blood flow rate maximum: 400
Dialysis flow rate: 600 mL/min
Dialysate temperature: 37 degrees Celsius
Sodium (Na): 135
Potassium (K): 2
Calcium (Ca): 2.5
Bicarbonate (HCO3): 35
12/29/24 14:08
Albuterol Sulfate [Ventolin Nebules] 10 mg INH R NOW STA
12/29/24 14:57
Admit/Transfer Patient As Directed
Co-Sign Provider:
Level of Care: Inpatient admission
Assign to:: IMU- Intermediate Care
Physician / Group: Wally
Diagnosis: Hyperkalemia
Reason for Hospitalization: Urgent HD,
Expected length of stay greater than two midnights?: Yes
ELOS- Estimated Length of Stay in days: 3
I certify the patient meets the requirements for IP care: Yes
12/29/24 15:15
Calcium Gluconate 2 gram/100mL [Calcium Gluconate] 2 gram in 100 ml IV ONCE
12/29/24 16:58
Acetaminophen [Tylenol] 650 mg PO Q6HPRN PRN
Heparin 5,000 units SC Q8
12/29/24 16:58
DX Deep Vein Thrombosis Video Routine
12/29/24 20:00
Carvedilol [Coreg] 25 mg PO MOWEFR@1999
12/29/24 22:00
NIFEdipine EXTENDED RELEASE [Procardia Xl (Extended Release)] 60 mg PO HS
12/30/24 06:00
Levothyroxine [Synthroid] 150 mcg PO DAILY@0600
12/30/24 08:00
Carvedilol [Coreg] 25 mg PO SuTuThSa@
Ferrous Sulfate [Feosol] 325 mg PO DAILY
sucroferric oxyhydroxide [Velphoro] 500 mg PO BID@0800,1700
Abnormal Lab Results
12/29/24 12/29/24
12:09 13:20
WBC 11.0 H 10^3/uL
(4.8-10.8)
RBC 3.34 L 10^6/uL
(4.20-5.40)
Hgb 11.5 L g/dL
(12.0-16.0)
Hct 33.4 L %
(37.0-47.0)
MCV 100.0 H fL
(81.0-99.0)
MCH 34.4 H pg
(27.0-31.0)
Absolute Neuts (auto) 7.6 H 10^3/uL
(1.4-6.5)
Lymphocytes % 20.1 L %
(20.5-51.1)
Sodium 132 L mmol/L
(135-145)
Potassium 7.7 H* mmol/L
(3.5-5.1)
Chloride 96 L mmol/L
(98-107)
Carbon Dioxide 18 L mmol/L
(22-30)
BUN 123 H* mg/dl
(7-17)
Creatinine 11.8 H* mg/dL
(0.6-1.0)
12/29/24 12:09
12/29/24 13:20
Vital Signs
Initial and Last Documented VS:
Initial Vital Signs
Temp Pulse Resp BP Pulse Ox
97.5 F 87 18 204/101 99
12/29/24 10:56 12/29/24 10:56 12/29/24 10:56 12/29/24 10:56 12/29/24 10:56
Last Documented Vital Signs
Temp Pulse Resp BP Pulse Ox
98.3 F 92 14 155/99 100
12/29/24 19:28 12/29/24 20:45 12/29/24 20:45 12/29/24 20:29 12/29/24 20:51
<Leonard Raygoza, - Last Filed: 12/29/24 13:29>
Orders/Labs/Results
Orders:
Orders
12/29/24 11:49
Electrocardiogram (*1) Urgent
Reason for Study: Vertigo / Dizzy
Cardiac Monitoring- Treatment ONCE
EKG- Treatment ONCE
Levalbuterol [Xopenex 1.25 mg Inhalant Solution] 1.25 mg INH R NOW STA
12/29/24 11:51
CR Chest - 2 Views Urgent
Comment:
Reason For Exam: shortness of breath
12/29/24 12:09
COVID-19 Antigen Urgent
Source: Nasal Swab
Complete Blood Count/With Diff Urgent
Influenza A+B Rapid Molecular Urgent
OLGA Source: Nasal Swab
Specimen Description:
12/29/24 12:48
Labetalol HCl [Trandate] 10 mg IV NOW STA
12/29/24 13:20
Comprehensive Metabolic Panel Urgent
Troponin I Urgent
12/29/24 13:45
NEPHROLOGY CONSULT Urgent
Consulting Provider: Marcus Amin
Was physician already notified: Yes
12/29/24 14:07
Mannitol 25% 12.5 grams IV HD-Q1HPRN PRN
Hemodialysis treatment As Directed
Treatment date:: 12/29/24
Treatment type: Hemodialysis
Ultrafiltration (kg): 3-4
Treatment time (duration): 3 hours 30 minutes
Use dialysis access:: AVF
Dialyzer:: Optiflux 160
Blood flow rate minimum: 350
Blood flow rate maximum: 400
Dialysis flow rate: 600 mL/min
Dialysate temperature: 37 degrees Celsius
Sodium (Na): 135
Potassium (K): 2
Calcium (Ca): 2.5
Bicarbonate (HCO3): 35
12/29/24 14:08
Albuterol Sulfate [Ventolin Nebules] 10 mg INH R NOW STA
12/29/24 14:57
Admit/Transfer Patient As Directed
Co-Sign Provider:
Level of Care: Inpatient admission
Assign to:: IMU- Intermediate Care
Physician / Group: Wally
Diagnosis: Hyperkalemia
Reason for Hospitalization: Urgent HD,
Expected length of stay greater than two midnights?: Yes
ELOS- Estimated Length of Stay in days: 3
I certify the patient meets the requirements for IP care: Yes
12/29/24 15:15
Calcium Gluconate 2 gram/100mL [Calcium Gluconate] 2 gram in 100 ml IV ONCE
12/29/24 16:58
Acetaminophen [Tylenol] 650 mg PO Q6HPRN PRN
Heparin 5,000 units SC Q8
12/29/24 16:58
DX Deep Vein Thrombosis Video Routine
12/29/24 20:00
Carvedilol [Coreg] 25 mg PO MOWEFR@2000
12/29/24 22:00
NIFEdipine EXTENDED RELEASE [Procardia Xl (Extended Release)] 60 mg PO HS
12/30/24 06:00
Levothyroxine [Synthroid] 150 mcg PO DAILY@0600
12/30/24 08:00
Carvedilol [Coreg] 25 mg PO SuTuThSa@08,1999
Ferrous Sulfate [Feosol] 325 mg PO DAILY
sucroferric oxyhydroxide [Velphoro] 500 mg PO BID@0800,1700
Abnormal Lab Results
12/29/24 12/29/24
12:09 13:20
WBC 11.0 H 10^3/uL
(4.8-10.8)
RBC 3.34 L 10^6/uL
(4.20-5.40)
Hgb 11.5 L g/dL
(12.0-16.0)
Hct 33.4 L %
(37.0-47.0)
MCV 100.0 H fL
(81.0-99.0)
MCH 34.4 H pg
(27.0-31.0)
Absolute Neuts (auto) 7.6 H 10^3/uL
(1.4-6.5)
Lymphocytes % 20.1 L %
(20.5-51.1)
Sodium 132 L mmol/L
(135-145)
Potassium 7.7 H* mmol/L
(3.5-5.1)
Chloride 96 L mmol/L
(98-107)
Carbon Dioxide 18 L mmol/L
(22-30)
BUN 123 H* mg/dl
(7-17)
Creatinine 11.8 H* mg/dL
(0.6-1.0)
12/29/24 12:09
12/29/24 13:20
Vital Signs
Initial and Last Documented VS:
Initial Vital Signs
Temp Pulse Resp BP Pulse Ox
97.5 F 87 18 204/101 99
12/29/24 10:56 12/29/24 10:56 12/29/24 10:56 12/29/24 10:56 12/29/24 10:56
Last Documented Vital Signs
Temp Pulse Resp BP Pulse Ox
98.3 F 92 14 155/99 100
12/29/24 19:28 12/29/24 20:45 12/29/24 20:45 12/29/24 20:29 12/29/24 20:51
<Nanci Mcdonough PA-C - Last Filed: 12/29/24 21:08>
MDM/Problems Addressed
Differential Diagnosis Includes:
ddx include acute CHF/fluid overload, pneumonia, COPD exacerbation, electrolyte derangement
MDM/Problems Addressed:
49-year-old female history of end-stage renal disease on dialysis oliguric at baseline, COPD, hypertension, presents emergency department today with 2 days of nausea vomiting, shortness of breath and cough. She was too sick to go to dialysis so she
has not had a treatment since the . She normally gets dialysis Friday. Her chest x-ray is not concerning for CHF. She was given Xopenex in the ER. She is acutely hypertensive in the ER, she required dose of labetalol.
Nephrology made aware. Potassium came back at 7.7, EKG shows no concerning changes at this point. Patient given hour-long albuterol neb, as well as calcium gluconate. Discussed with nephrology, decision made to refrain from insulin and Kayexalate
at this time as patient will get dialysis. Patient referred for admission.
<Nanci Mcdonough PA-C - Last Filed: 12/29/24 21:08>
*Pulse Oximetry
Patient hypoxic: no
*Critical Care Note
Total Time (30-74mins, 75-104mins- exclusive of procedures): Not Applicable
Data Reviewed
Review of Other/Old Records Reveals: Records (Reviewed discharge summary from 11/09/2024 patient seen for incisional hernia)
Source: patient and records
ED Attending Note
<Nanci Mcdonough PA-C - Last Filed: 12/29/24 21:08>
-
Portions of this chart may have been created with voice recognition software.� Occasional wrong word or��sound alike� substitutions may have occurred due to the inherent limitations of voice recognition software.
<Leonard Raygoza DO - Last Filed: 12/29/24 13:29>
ED Attending Note
Patient seen and examined by attending physician: Yes
I performed the substantive portion of visit, reviewed & personally made and approve the management plan that is documented in note by myself or TORIN.: Yes
ED Attending Note:
I evaluated patient at bedside. She has not had dialysis in about 5 days. Questionable weight gain but has not been weighing her self at home. She feels like she is somewhat volume overloaded. Hypertensive here, did not take any
antihypertensives earlier today but we did give a dose of labetalol. She is oliguric.
Discharge Plan
Departure
Patient Disposition: Admit
Date of Disposition: 12/29/24
Time of Disposition: 14:53
Admit to: Telemetry
Presentation/result/management discussed w/ accepting MD/DO: Hospitalist
Patient with high blood pressure during this ER visit?: Yes
Condition: Fair
Discharge Problem:
Shortness of breath, ESRD (end stage renal disease) on dialysis
Interventions
Interventions:
*Risk Screen - Suicide Last Done: 12/29/24 17:31
*General Assessment Last Done: 12/29/24 10:56
*Neglect/Abuse Screening Last Done: 12/29/24 10:56
ED- Fall Risk Assessment Last Done: 12/29/24 17:05
*ED COVID-19 Vaccine History Last Done: 12/29/24 17:31
*Nursing Disposition Last Done: 12/29/24 17:05
QZ-Kirzsn-Ukbkyjyloe Assessment Last Done: 12/29/24 12:16
Discharge Date and Time
Discharge Date/Time: 12/29/24 17:06
[2024-12-29] MEDS: XOPENEX 1.25 MG INHALANT SOLUTION INH (12:08)
[2024-12-29 12:23] LABS: % Basophils 0.9 % (0-2); % Eosinophils 4.5 % (0-6); % Immature Granulocytes 0.4 % (0-0.5); % Lymphocytes 20.1 % (20.5-51.1); % Monocytes 5.4 % (1.7-9.3); % Neutrophils 68.7 % (42.2-75.2); Absolute Basophils 0.1 10^3/uL (0-0.2); Absolute Eosinophils 0.5 10^3/uL (0-0.7); Absolute Lymphocytes 2.2 10^3/uL (1.2-3.4); Absolute Monocytes 0.6 10^3/uL (0.1-0.6); Absolute Neutrophils 7.6 10^3/uL (1.4-6.5); Hematocrit 33.4 % (37.0-47.0); Hemoglobin 11.5 g/dL (12.0-16.0); Mean Corp Hgb Conc. 34.4 g/dL (33.0-37.0); Mean Corpuscular Hgb 34.4 pg (27.0-31.0); Mean Platelet Volume 9.7 fL (7.4-10.4); Nucleated Red Blood Cells % 0 %; Platelet Count 291 10^3/uL (130-400); Red Blood Cell Count 3.34 10^6/uL (4.20-5.40); Red Cell Dist. Width 13.5 % (11.5-14.5)
[2024-12-29 12:31] LABS: COVID-19 Antigen Negative (Negative)
[2024-12-29] MEDS: TRANDATE 10 MG IV (13:00)
[2024-12-29 14:03] LABS: ALT (SGPT) 11 U/L (0-35); AST (SGOT) 16 U/L (14-36); Albumin 4.4 g/dl (3.5-5.0); Alkaline Phosphatase 88 U/L (38-126); Calcium 9.5 mg/dl (8.4-10.2); Carbon Dioxide 18 mmol/L (22-30); Chloride 96 mmol/L (98-107); Glucose 80 mg/dl (70-99); Potassium 7.7 mmol/L (3.5-5.1); Sodium 132 mmol/L (135-145); Total Bilirubin 0.9 mg/dl (0.2-1.3); Total Protein 7.1 g/dl (6.3-8.2); eGFR 3.57
[2024-12-29 14:09] LABS: Troponin I 0.032 ng/ml
[2024-12-29] MEDS: VENTOLIN NEBULES 10 MG INH (14:34)
[2024-12-29 14:58] LABS: Blood Urea Nitrogen 123 mg/dl (7-17)
--- NOTE | 2024-12-29 15:13 | HPS.HSE ---
Family Physician
-
Family Physician: NOT KNOW UNKNOWN - PT DOES
Chief Complaint
-
Shortness of Breath
History of Present Illness
Patient is a 49 y/o female past medical history of ESRD on HD, Hypertension, COPD and Hypothyroidism who presents with increased nausea, vomiting and increasing shortness of breath. Patient report she developed a very bad cold over the weekend with
cough, body aches, generalized weakness and decreased appetite. Due to her symptoms she missed dialysis on Friday and again today. She reports vomiting and diarrhea since yesterday, and worsening weakness. She reports her face feels puffy and she
has gained weight. Work-up in ED revealed potassium level of 7.7. Hospitalist group was asked to evaluate the patient for admission to the hospital.
Medical History
Past Medical History
Past Medical History: Reports Other
Additional Past Medical History:
ESRD on HD
COPD
Essential Hypertension
Hypothyroidism
Prior Strokes
Past Surgical History: Reports Other
Additional Past Surgical History:
Left Upper Extremity AV Fistula (Failed)
Incisional Hernia Repair
Social History
Tobacco: Former Smoker (Quit about 5 years ago)
Family History
Family History: Not pertinent
Allergies / Home Medications
Allergies reflects when Allergies were last updated in [employer].
Home Medications with original date entered in [employer]
Allergy/Medication List:
Allergies
Allergy/AdvReac Type Severity Reaction Status Date / Time
No Known Allergies Allergy Verified 12/29/24 10:56
Home Medications
carvedilol 25 mg tablet 25 mg PO MOWEFR@2000 in the evening after dialysis for blood pressure 05/28/22
nifedipine 60 mg tablet,extended release 60 mg PO HS Blood pressure 05/28/22
sucroferric oxyhydroxide 500 mg chewable tablet (Velphoro) 500 mg PO BID Hyperphosphatemia 04/09/23
carvedilol 25 mg tablet 25 mg PO SUTUTHSA@0800,1700 on [facility] for blood pressure 11/28/23
acetaminophen 325 mg tablet 650 mg PO Q6HPRN PRN MILD PAIN 12/29/24
albuterol sulfate 90 mcg/actuation breath activated powder inhaler (ProAir RespiClick) 2 inh inhalation Q4HPRN PRN WHEEZING,SOB 12/29/24
estradiol 0.01% (0.1 mg/gram) vaginal cream 1 appful vaginal TUSA 12/29/24
ferrous sulfate 325 mg (65 mg iron) tablet 325 mg PO DAILY 12/29/24
fluticasone 250 mcg-salmeterol 50 mcg/dose blistr powdr for inhalation 1 inh inhalation R BID 12/29/24
levothyroxine 150 mcg tablet 150 mcg PO DAILY 12/29/24
Review of Systems
-
A 12 point ROS was completed and negative except as noted: Yes
Constitutional: Reports Chills
Respiratory: Reports Cough and Trouble Breathing
Cardiac: Denies Chest Pain or Palpitations
Abdomen/GI: Reports Nausea, Vomiting and Diarrhea; Denies Abdominal Pain
Physical Exam
Vital Signs
Vital Signs
Temp Pulse Resp BP Pulse Ox
97.5 F 80 16 214/98 99
12/29/24 10:56 12/29/24 15:00 12/29/24 15:00 12/29/24 15:00 12/29/24 15:00
Physical Exam
General: Comfortable and Conversant
HEENT: Anicteric and Moist mucous membranes
Respiratory: Non Labored Respirations and Other (Few faint wheezes)
Cardiac: S1/S2 and Regular Rhythm
GI: Soft and Non Tender
Rectal: Deferred by Provider
Genito-urinary: No Bray
Musculoskeletal: No Clubbing, No Cyanosis and No Edema
Skin: Warm and Dry
Neuro: Awake, Alert, Oriented and Nonfocal/grossly intact
Psych: Calm
Laboratory Results
-
12/29/24 12:09
12/29/24 13:20
Laboratory Results
Total Bilirubin 0.9 mg/dl (0.2-1.3) 12/29/24 13:20
AST 16 U/L (14-36) 12/29/24 13:20
ALT 11 U/L (0-35) 12/29/24 13:20
Alkaline Phosphatase 88 U/L (38-126) 12/29/24 13:20
Troponin I 0.032 ng/ml 12/29/24 13:20
Data Reviewed
-
Lab Data: Labs Reviewed by me
Old Records: Reviewed
Impression/Plan
-
Symptomatic Uremia and Acute / Severe Hyperkalemia secondary to missed dialysis treatments
-Reviewed with Nephrology - Planning for Urgent HD this evening
Volume Mediated Hypertensive Urgency
-Suspect blood pressure will improve with dialysis treatment
-Continue Coreg and Nifedipine
-Add hydralazine PRN
COPD, mild acute exacerbation
-Continue Pulmicort Neb during hospitalization
-Continue DuoNeb QID and PRN
-Add Mucinex
ESRD on HD
-Continue phosphate binders
-Monitor Is&Os and Daily Weights
Hypothyroidism
-Continue Levothyroxine
DVT proph: SC Heparin
Code Status: Full Code
[2024-12-29] MEDS: CALCIUM GLUCONATE 100 IV (15:26)
--- NOTE | 2024-12-29 15:30 | W.PN.UPDATE ---
Update Note
Progress Note Update
This note serves as an addendum to the H&P by screenplay writer TORIN
Brandy DIETERICK
HPI
47F HX HD dependent ESRD for last 3 yrs, functioning Lt arm AVF at [facility] in [place], seen at ER
- Non adherence to HD since 12/24/23 coz she felt sick for URTI line nasal congestion , cough etc
- reports 2 days of N/V/D and SoB and cough
- report puffy face also wheezes and rales on exam
- HTN emergency SBP 220/ 100 requiring IV labetalol
PHX include COPD, HTN N
Labs;
K 7.7 at ER
- S/p Albuterol Neb, IV Ca Gluconate 2gm, IV Labetolol 10mg , IV Manitol 25% 12.5 IV
Vital Signs
Temp Pulse Resp BP Pulse Ox
97.5 F 80 16 214/98 99
12/29/24 10:56 12/29/24 15:00 12/29/24 15:00 12/29/24 15:00 12/29/24 15:00
PE
Gen: Not toxic , conversant
HEENT: wearing FM
Neck: supple
Lungs: symmetric AE
Cor: RRR S1 S2
Abdomen: soft benign
GENERAL MAGISTRATE: AAO3
MS: Lt arm AVF ; POS thril and bruit
Psych: nl mood and affect
Laboratory Tests
12/29/24
12:09
SARS-CoV-2 Antigen Negative
Abnormal Lab Results
12/29/24 12/29/24
12:09 13:20
WBC 11.0 H
RBC 3.34 L
Hgb 11.5 L
Hct 33.4 L
MCV 100.0 H
MCH 34.4 H
Absolute Neuts (auto) 7.6 H
Lymphocytes % 20.1 L
Sodium 132 L
Potassium 7.7 H*
Chloride 96 L
Carbon Dioxide 18 L
BUN 123 H*
Creatinine 11.8 H*
NEG Flu A & B
NEG Covid
EKG
NORMAL SINUS RHYTHM
SEPTAL INFARCT , AGE UNDETERMINED
ABNORMAL ECG
WHEN COMPARED WITH ECG OF 15-OCT-2024 12:45,
NONSPECIFIC T WAVE ABNORMALITY, IMPROVED IN INFERIOR LEADS
T WAVE INVERSION NO LONGER EVIDENT IN LATERAL LEADS
CXR
No acute disease of the chest.
Mild cardiomegaly. New
Last hospitalist admission:
ASSESSMENT & PLAN
Acute life threatening hyperkalemia
Symptomatic uremia due to non compliance with HD - she missed 2 session of HD since 12/24/23
symptomatic volume overload
- Urgent Nephro consult for HD
- mange volume by HD
- f/u K post HD
Volume mediated HTN emergency
Essential HTN
- Urgent HD and observe BP
- resume Carvedilol and Nifedipine
Hypothyroid
- c/w LT4 150 daily
DVT Px: SQH
Full code
IMU
--- NOTE | 2024-12-29 16:29 | W.CON.NEPH ---
Consultation
-
Date/Time Consultation Requested: December 29, 2024 at 3 PM
Date/Time Consultation Performed: December 29, 2024 at 4 PM
Requesting Provider: Dr. Lo
Performing Provider: Dr. Amin
Reason for Consultation: Hyperkalemia and end-stage renal disease
Medical History
-
Chief Complaint: end-stage renal disease
History of Present Illness:
The patient is a 49-year-old female with a
past medical history of end-stage renal disease since November
2022 following a COVID admission. She is maintained on dialysis
every Friday, Friday, and Friday at the [facility].
She has a history of diverticulitis and underwent Bobby's
resection with creation of short rectal stump in November of 2022,
which was subsequently complicated by stump dehiscence and an
incisional hernia at the colostomy site then robotic takedown of her colostomy site
and hernia repair.
She presents today after missing dialysis since December 24. She has moderate shortness of breath hypertension and a potassium of 7.7.
Renal consult was for dialysis management and hyperkalemia
Past Medical History
PAST MEDICAL HISTORY: Includes:
1. End-stage renal disease since November of 2022.
2. Multi-drug resistant hypertension.
3. History of diverticulitis with aforementioned complications from
November of 2022 with colostomy.
4. Anemia.
5. COPD.
6. Hypothyroidism.
7. History of stroke.
8. Hyperphosphatemia.
9. Left upper extremity AV fistula.
Social History
former smoker
Family History
No renal disease
Allergies / Home Medications
Allergy/AdvReac Type Severity Reaction Status Date / Time
No Known Allergies Allergy Verified 12/29/24 10:56
�Medication �Instructions �Recorded �Confirmed �Type
carvedilol 25 mg tablet 25 mg PO MOWEFR@2000 in the 05/28/22 12/29/24 History
evening after dialysis for blood
pressure
nifedipine 60 mg tablet,extended 60 mg PO HS Blood pressure 05/28/22 12/29/24 History
release
sucroferric oxyhydroxide 500 mg 500 mg PO BID Hyperphosphatemia 04/09/23 12/29/24 History
chewable tablet (Velphoro)
carvedilol 25 mg tablet 25 mg PO SUTUTHSA@0800,1700 on 11/28/23 12/29/24 History
Gqwa-Ryxoc-Ndm-Sun for blood
pressure
acetaminophen 325 mg tablet 650 mg PO Q6HPRN PRN MILD PAIN 12/29/24 12/29/24 History
albuterol sulfate 90 mcg/actuation 2 inh inhalation Q4HPRN PRN 12/29/24 12/29/24 History
breath activated powder inhaler WHEEZING,SOB
(ProAir RespiClick)
estradiol 0.01% (0.1 mg/gram) 1 appful vaginal TUSA 12/29/24 12/29/24 History
vaginal cream
ferrous sulfate 325 mg (65 mg 325 mg PO DAILY 12/29/24 12/29/24 History
iron) tablet
fluticasone 250 mcg-salmeterol 50 1 inh inhalation R BID 12/29/24 12/29/24 History
mcg/dose blistr powdr for
inhalation
levothyroxine 150 mcg tablet 150 mcg PO DAILY 12/29/24 12/29/24 History
Review of Systems
-
Mild shortness of breath no chest pain
Physical Exam
Vital Signs
Vital Signs
Temp Pulse Resp BP Pulse Ox
97.5 F 86 15 219/102 97
12/29/24 10:56 12/29/24 15:45 12/29/24 15:45 12/29/24 15:45 12/29/24 15:45
Lab Results
WBC 11.0 10^3/uL (4.8-10.8) H 12/29/24 12:09
RBC 3.34 10^6/uL (4.20-5.40) L 12/29/24 12:09
Hgb 11.5 g/dL (12.0-16.0) L 12/29/24 12:09
Hct 33.4 % (37.0-47.0) L 12/29/24 12:09
Plt Count 291 10^3/uL (130-400) 12/29/24 12:09
Sodium 132 mmol/L (135-145) L 12/29/24 13:20
Potassium 7.7 mmol/L (3.5-5.1) H* 12/29/24 13:20
Chloride 96 mmol/L (98-107) L 12/29/24 13:20
Carbon Dioxide 18 mmol/L (22-30) L 12/29/24 13:20
BUN 123 mg/dl (7-17) H* 12/29/24 13:20
Creatinine 11.8 mg/dL (0.6-1.0) H* 12/29/24 13:20
eGFR 3.57 12/29/24 13:20
Glucose 80 mg/dl (70-99) 12/29/24 13:20
Calcium 9.5 mg/dl (8.4-10.2) 12/29/24 13:20
Lrm-Z-Hfagknvwvha Pept Cancelled 12/29/24 12:09
Albumin 4.4 g/dl (3.5-5.0) 12/29/24 13:20
Physical Exam
General no acute distress
HEENT no cephalic atraumatic extraocular muscle intact no scleral icterus no JVD neck supple
lungs coarse breath sounds
heart regular S1-S2 positive
abdomen soft nontender positive bowel sounds
extremities +1 edema
Neurologically nonfocal alert and oriented x 3
Skin no lesions no abrasions no petechiae
Psych normal affect no bizarre behavior
Data Reviewed
-
Radiology: Image Personally Visualized and interpreted (No acute pathology)
Labs: Labs Reviewed by me, Discussed with Patient and Discussed with Family
Assessment/Plan
-
Impression:
Status post hernia repair
End-stage renal disease Friday [facility] dialysis unit
Multidrug resistant hypertension
Anemia of chronic kidney disease
History of COPD
Hypothyroidism
History of CVA
Hyperphosphatemia
Left upper extremity AV fistula
Hyperkalemia
Plan:
Estimated dry weight is 85 kg
Currently 90 kg
Hemodialysis today.
Calcium gluconate given in the ER for the hyperkalemia.
2 potassium bath 3 and half hour treatment today with ultrafiltration 3 to 4 L.
I discussed with the ER nursing staff as well as dialysis nurse.
Will dialyze again tomorrow as well
--- NOTE | 2024-12-29 17:12 | PTCARENOTE ---
Patient arrived from ER via stretcher due to Hyperkalemia. Patient is having stat dialysis at this time. BP is 232/106. Potassium elevated. Family and patient oriented to plan of care.
--- NOTE | 2024-12-29 17:21 | W.PN.NEPH.HD ---
Assessment
-
HD again
Progress Note - Hemodialysis
-
Date of Service: December 29, 2024
Duration: 3 hours
Potassium Bath: 2
Calcium Bath: 2.5
Opti-Dialyzer: 160
Ultrafiltration: Other (2.5-3kg)
Blood Flow: 400
Dialysate Flow: 600
EPO: no
[2024-12-29] MEDS: HEPARIN SC (18:30)
[2024-12-29 20:01] LABS: Glucose - Point of Care 83 mg/dl (70-99)
[2024-12-29] MEDS: MUCINEX 600 MG PO (20:28)
[2024-12-29] MEDS: COREG 25 MG PO (20:29)
[2024-12-29] MEDS: PULMICORT 0.5 MG INH (20:40)
[2024-12-29] MEDS: DUONEB 3 ML INH (20:40)
--- NOTE | 2024-12-29 20:49 | PTCARENOTE ---
received patient from previous RN. Patient getting HD in room. HD nurse asked to check blood sugar because patient was a little lightheaded. Accucheck was 83. Patient instructed to try to eat her meal. Reassessed patient in 20 mins after eating meal
and patient reports 'feeling much better'. Care ongoing. call conte in reach.
[2024-12-29] MEDS: PROCARDIA XL (EXTENDED RELEASE) 60 MG PO (21:12)
[2024-12-29] MEDS: HEPARIN 5000 UNITS SC (23:19)
[2024-12-30] VITALS (92 sets, daily range): BP systolic 103–177; BP diastolic 61–161
[2024-12-30 04:46] LABS: Hematocrit 32.3 % (37.0-47.0); Hemoglobin 10.9 g/dL (12.0-16.0); Mean Corp Hgb Conc. 33.7 g/dL (33.0-37.0); Mean Corpuscular Hgb 33.3 pg (27.0-31.0); Mean Corpuscular Volume 98.8 fL (81.0-99.0); Mean Platelet Volume 9.8 fL (7.4-10.4); Platelet Count 239 10^3/uL (130-400); Red Blood Cell Count 3.27 10^6/uL (4.20-5.40); Red Cell Dist. Width 13.5 % (11.5-14.5); White Blood Cell Count 7.8 10^3/uL (4.8-10.8)
[2024-12-30 05:00] LABS: Blood Urea Nitrogen 66 mg/dl (7-17); Calcium 9.6 mg/dl (8.4-10.2); Carbon Dioxide 26 mmol/L (22-30); Chloride 97 mmol/L (98-107); Glucose 90 mg/dl (70-99); Potassium 5.1 mmol/L (3.5-5.1); Sodium 134 mmol/L (135-145); eGFR 5.61
[2024-12-30] MEDS: SYNTHROID 150 MCG PO (05:36)
--- NOTE | 2024-12-30 06:25 | W.PN.HOSP.TC ---
Today's Communication/Plan
-
HD today
Assessment / Plan
Assessment / Plan
Physical Exam
General: Comfortable and Conversant
HEENT: Anicteric and Moist mucous membranes
Respiratory: Non Labored Respirations, no wheezes.
Cardiac: S1/S2
GI: Soft and Non Tender. Surgical scar midline noted ( per pt, Dr Johnson saw it recently and seems to heal well)
Rectal: no bleeding.
Genito-urinary: No Bray
Musculoskeletal: No Clubbing, No Cyanosis and No Edema
Skin: Warm and Dry
Neuro: Awake, Alert, Oriented and Nonfocal/grossly intact
Psych: Calm
# Symptomatic Uremia and Acute / Severe Hyperkalemia secondary to missed dialysis treatments
s/p Urgent HD and calcium gluconate Tx
K is 5
she is feeling better
another HD today
Appreciate nephrology help.
# Volume Mediated Hypertensive Urgency
-improved
-Continue Coreg and Nifedipine
-Added hydralazine PRN
# COPD, mild acute exacerbation
-Continue Pulmicort Neb during hospitalization
-Continue DuoNeb QID and PRN
-Added Mucinex
# Hyponatremia
Mild
#ESRD on HD
-Continue phosphate binders
-Monitor Is&Os and Daily Weights
# Hypothyroidism
-Continue Levothyroxine
DVT proph: SC Heparin
Code Status: Full Code
Total time spent to see the patient on the floor, examine the patient, review data and lab results, discuss treatment plan with patient, nursing staff around 55 minutes
Anticipated Discharge: Within 24 hours
Subjective/Interval History
-
Date of Service: December 30, 2024
She feels better
No nausea
No sob
Still tired
Objective Data
-
Labs:
Laboratory Results
12/30/24
04:04
WBC 7.8
Hgb 10.9 L
Hct 32.3 L
Plt Count 239
Sodium 134 L
Potassium 5.1 D
Chloride 97 L
Carbon Dioxide 26
BUN 66 H
Creatinine 8.1 H*
Glucose 90
Calcium 9.6
Vital Signs:
Vital Signs
Temp Pulse Resp BP Pulse Ox
98.0 F 79 13 116/78 93
12/30/24 04:20 12/30/24 05:15 12/30/24 05:15 12/30/24 05:15 12/30/24 05:15
[2024-12-30] MEDS: DUONEB 3 ML INH ×4 (07:27→19:53)
[2024-12-30] MEDS: PULMICORT 0.5 MG INH ×2 (07:27→19:53)
[2024-12-30] MEDS: HEPARIN 5000 UNITS SC ×3 (09:00→23:06)
--- NOTE | 2024-12-30 11:27 | W.PN.NEPH.HD ---
Assessment
-
From renal standpoint be okay for discharge with dialysis tomorrow outpatient
Progress Note - Hemodialysis
-
Date of Service: December 30, 2024
Duration: 3 hours
Potassium Bath: 2
Calcium Bath: 2.5
Opti-Dialyzer: 160
Ultrafiltration: Other (2.5-3kg)
Blood Flow: 400
Dialysate Flow: 600
EPO: no
--- NOTE | 2024-12-30 11:30 | CM ---
Patient with Hx ESRD on HD and stroke here with Dx Uremia and Hyperkalemia secondary to missed dialysis treatments. Room air. Per nursing; requires assist of 1.
Met with patient while she was receiving dialysis.
The patient resides with her and brother in a first floor apartment with 3 [address].
She has been independent in ADLs and ambulation.
The patient is active and normally works at [employer].
The patient goes to [facility] HD M-W- 6am and transports herself to/from HD.
DME - has RW & w/c in storage
[facility]
PCP - [facility]
Pharmacy - [facility] [place]
No CM d/c needs identified.
Plan home.
[2024-12-30] MEDS: COREG PO (14:30)
[2024-12-30] MEDS: MUCINEX 600 MG PO ×2 (14:31→20:56)
[2024-12-30] MEDS: FEOSOL 325 MG PO (14:31)
[2024-12-30] MEDS: COREG 25 MG PO (20:56)
[2024-12-30] MEDS: PROCARDIA XL (EXTENDED RELEASE) 60 MG PO (20:57)
[2024-12-31] VITALS (23 sets, daily range): BP systolic 102–158; BP diastolic 62–102
[2024-12-31] MEDS: SYNTHROID 150 MCG PO (05:41)
[2024-12-31 06:04] LABS: Hematocrit 34.1 % (37.0-47.0); Hemoglobin 11.7 g/dL (12.0-16.0); Mean Corp Hgb Conc. 34.3 g/dL (33.0-37.0); Mean Corpuscular Hgb 33.4 pg (27.0-31.0); Mean Corpuscular Volume 97.4 fL (81.0-99.0); Mean Platelet Volume 9.3 fL (7.4-10.4); Platelet Count 239 10^3/uL (130-400); Red Cell Dist. Width 13.4 % (11.5-14.5); White Blood Cell Count 7.7 10^3/uL (4.8-10.8)
[2024-12-31 06:28] LABS: Blood Urea Nitrogen 43 mg/dl (7-17); Calcium 9.9 mg/dl (8.4-10.2); Carbon Dioxide 27 mmol/L (22-30); Chloride 90 mmol/L (98-107); Glucose 91 mg/dl (70-99); Potassium 4.6 mmol/L (3.5-5.1); Sodium 131 mmol/L (135-145); eGFR 7.59
--- NOTE | 2024-12-31 06:52 | W.PN.HOSP.TC ---
Today's Communication/Plan
-
dc after HD
Assessment / Plan
Assessment / Plan
Physical Exam
General: Comfortable and Conversant
HEENT: Anicteric and Moist mucous membranes
Respiratory: Non Labored Respirations, no wheezes.
Cardiac: S1/S2
GI: Soft and Non Tender. Surgical scar midline noted ( per pt, Dr Johnson saw it recently and seems to heal well)
Rectal: no bleeding.
Genito-urinary: No Bray
Musculoskeletal: No Clubbing, No Cyanosis and No Edema
Skin: Warm and Dry
Neuro: Awake, Alert, Oriented and Nonfocal/grossly intact
Psych: Calm
# Symptomatic Uremia and Acute / Severe Hyperkalemia secondary to missed dialysis treatments
s/p Urgent HD and calcium gluconate Tx
K is 5
she is feeling better
another HD today
Appreciate nephrology help.
# Volume Mediated Hypertensive Urgency
-improved
-Continue Coreg and Nifedipine
-Added hydralazine PRN
# COPD, mild acute exacerbation
-Continue Pulmicort Neb during hospitalization
-Continue DuoNeb QID and PRN
-Added Mucinex
# Hyponatremia
Mild
#ESRD on HD
-Continue phosphate binders
-Monitor Is&Os and Daily Weights
# Hypothyroidism
-Continue Levothyroxine
DVT proph: SC Heparin
Code Status: Full Code
Total discharge time spent to see the patient on the floor, examine the patient, review data and lab results, discuss discharge plan with patient, nursing staff around 65 minutes
Anticipated Discharge: Today
Subjective/Interval History
-
Date of Service: December 31, 2024
No chest pain
No sob
Objective Data
-
Labs:
Laboratory Results
12/31/24 12/31/24
05:41 05:42
WBC 7.7
Hgb 11.7 L
Hct 34.1 L
Plt Count 239
Sodium 131 L
Potassium 4.6
Chloride 90 L
Carbon Dioxide 27
BUN 43 H
Creatinine 6.3 H*
Glucose 91
Calcium 9.9
Vital Signs:
Vital Signs
Temp Pulse Resp BP Pulse Ox
98.6 F 74 16 142/92 96
12/31/24 04:41 12/31/24 06:02 12/31/24 06:02 12/31/24 06:02 12/31/24 06:05
[2024-12-31] MEDS: DUONEB 3 ML INH ×2 (07:12→10:41)
[2024-12-31] MEDS: PULMICORT 0.5 MG INH (07:12)
[2024-12-31] MEDS: FEOSOL 325 MG PO (09:44)
[2024-12-31] MEDS: MUCINEX 600 MG PO (09:44)
[2024-12-31] MEDS: HEPARIN 5000 UNITS SC (09:44)
--- NOTE | 2024-12-31 10:44 | W.PN.NEPH.HD ---
Assessment
-
Seen on HD. no complaints. VSS, access ok
for dc after HD
Progress Note - Hemodialysis
-
Date of Service: December 31, 2024
Duration: 30 minutes and 3 hours
Potassium Bath: 2
Calcium Bath: 2.5
Opti-Dialyzer: 160
Ultrafiltration: Other (3kg)
Blood Flow: 400
Dialysate Flow: 600
Heparin: no
EPO: no
--- NOTE | 2024-12-31 12:20 | CM ---
Patient received HD today. Per nurse assessment; ambulatory by self in room.
Met with patient as HD was completing. The patient says she feels ready for d/c home today. Her brother will provide a ride home.
No CM d/c needs identified.
Plan home today.
--- NOTE | 2024-12-31 12:46 | PTCARENOTE ---
Assumed care of patient at beginning of this shift from previous RN. HD nurse in to give treatment first thing this morning; currently completed. OOB to chair. Patient for discharge today. See worklist for full assessment and vital signs.
[2024-12-31] MEDS: DUONEB INH (13:51)
--- NOTE | 2025-01-01 14:28 | W.DCSUMMARY ---
Discharge Summary
Discharge Data
Date of Admission: 12/29/24
Date of Discharge: 12/31/24
-
Pending Results: No
Hospital Course
49 years old female with history of end-stage renal disease on dialysis presented to the hospital with weakness, shortness of breath. Patient missed dialysis since December 24. She reported that she was dealing with upper respiratory infection and
could not go to dialysis. She had potassium of 7.7 on arrival. Nephrology was consulted and she had urgent hemodialysis. Subsequent blood work showed potassium improved to 5. Patient started to feel better. Her vital signs improved including her
blood pressure. Chest radiography did not show infiltrate. She was not hypoxic. She had negative influenza and COVID screen. patient underwent her regular hemodialysis in the hospital. Patient remained hemodynamically stable. She was evaluated
by physical therapy and did not have needs. She was discharged home in a stable condition.
Discharge Plan
-
Patient Disposition: Home (Routine Discharge)
Discharge Diagnosis/Procedures: Weakness, symptomatic Uremia and Acute-/ Severe Hyperkalemia secondary to missed dialysis treatments. History of respiratory illness.
Diet: As tolerated
Referrals:
UNKNOWN - PT DOES,NOT KNOW [Family Provider] -
Prescriptions:
Continued
carvedilol 25 mg Tablet
25 mg PO MOWEFR@2000
nifedipine 60 mg Tablet Extended Release
60 mg PO HS
Velphoro 500 mg Tablet,Chewable
500 mg PO BID
carvedilol 25 mg tablet
25 mg PO SUTUTHSA@0800,1700
fluticasone propion-salmeterol 250-50 mcg/dose Blister With Device
1 inh INHALATION R BID
levothyroxine 150 mcg Tablet
150 mcg PO DAILY
estradiol 0.01 % (0.1 mg/gram) Cream
1 appful VAGINAL TUSA
ProAir RespiClick 90 mcg/actuation Aerosol Powdr Breath Activated
2 inh INHALATION Q4HPRN PRN (Reason: WHEEZING,SOB)
acetaminophen 325 mg tablet
650 mg PO Q6HPRN PRN (Reason: MILD PAIN)
ferrous sulfate 325 mg (65 mg iron) Tablet
325 mg PO DAILY
Discharge Orders:
Discharge Patient (As Directed); Ordered 12/31/24
Ordered By: Ashtyn John
Discharge Date and Time
Discharge Date/Time: 12/31/24 14:43
Print Language: CAMBODIAN
== END 2024-12-31 14:43 | disposition home or self-care (01) | DRG 640 ==
LOC: IMU 15:16
PROVIDERS: Nurse Practitioner Family; Physician Assistant; Physician Assistant Medical; Specialist; ADMITTING PHYSICIAN Internal Medicine; ATTENDING PHYSICIAN Internal Medicine; CONSULT PHYSICIAN Internal Medicine Nephrology; EMERGENCY PHYSICIAN Emergency Medicine
PROC: 5A1D70Z Performance of Urinary Filtration, Intermittent, Less than 6 Hours Per Day (ICD-10-PCS; 2024-12-29)
DX: E87.5 Hyperkalemia (principal); N18.6 End stage renal disease; I12.0 Hypertensive chronic kidney disease with stage 5 chronic kidney disease or end stage renal disease; I16.1 Hypertensive emergency; J44.1 Chronic obstructive pulmonary disease with (acute) exacerbation; J44.0 Chronic obstructive pulmonary disease with (acute) lower respiratory infection; Z11.52 Encounter for screening for COVID-19; E03.9 Hypothyroidism, unspecified; Z91.158 Patient's noncompliance with renal dialysis for other reason; Z91.199 Patient's noncompliance with other medical treatment and regimen due to unspecified reason; E87.70 Fluid overload, unspecified; Z86.73 Personal history of transient ischemic attack (TIA), and cerebral infarction without residual deficits; Z87.891 Personal history of nicotine dependence; Z99.2 Dependence on renal dialysis; D63.1 Anemia in chronic kidney disease; E83.39 Other disorders of phosphorus metabolism; I1A.0 Resistant hypertension
CPT/HCPCS: 71046; 80048; 80053; 82962; 84484; 85025; 85027; 87070; 87502; 87811; 93005; 94640; 96374; 99285; G0257

== ENCOUNTER → 2025-01-27 15:01 | Outpatient (REF) | payer OTHER, SELFPAY | LOC: RAD 15:01 | PROVIDERS: ATTENDING PHYSICIAN Family Medicine | DX: M54.41 Lumbago with sciatica, right side (principal) | CPT/HCPCS: 72110; 72202; 73502 ==

== ENCOUNTER 2025-07-05 18:39 | Emergency (ER) | payer OTHER, SELFPAY ==
[2025-07-05 18:44] VITALS: BP 215/118
--- NOTE | 2025-07-05 19:18 | ED.GENMED ---
History of Present Illness
<DO Stefani Quinn Last Filed: 07/05/25 19:21>
General
Chief Complaint: Musculo-Skeletal Complaint
Source: patient
Time Seen by Provider: 07/05/25 19:03
History of Present Illness
History of Present Illness:
49-year-old female presents to the emergency room complaining of left wrist pain. Patient was walking her dog when she was pulled down landing on an outstretched left arm. She had immediate pain and noted deformity of the left wrist. She is
right-hand dominant. Injury occurred about an hour and a half prior to arrival. She has some abrasions on her fingers but no other injuries.
Past History
<DO Stefani Quinn Last Filed: 07/05/25 19:21>
Past History
ED Past Medical History: Asthma (emphysema), COPD, HTN, Renal failure, Hypothyroidism and Other (Emphysema, pneumonia)
ED Past Surgical History: None
Social History
Tobacco: Former smoker
Alcohol: Occasional (Vodka one glass)
Drug: None
Personal: Single
Living: with family
Employment: Employed
Family History
Family History: Hypertension
Phy Exam
<Vasiliy Tee DO - Last Filed: 07/05/25 19:21>
Physical Exam
Physical Exam:
General: Awake, Alert, Oriented X3. No acute distress.
Vitals: unremarkable
Head: Atraumatic
Eyes: Pupils equal, EOMI
Neuro: Nonfocal
Skin: Warm, dry, no rash
Extremities: pulses equal b/l, no edema. Left arm shows swelling and deformity of the left wrist. Significant tender to palpation. Some abrasions to her left ring finger and middle finger.
Course
<DO Stefani Quinn Last Filed: 07/05/25 19:21>
Orders/Labs/Results
Orders:
Orders
07/05/25 18:40
CR Wrist - Left Min 3 Views Urgent
Comment:
Reason For Exam: fell and landed on left wrist
07/05/25 19:20
Ibuprofen [Motrin] 600 mg PO NOW STA
Oxycodone [Roxicodone] 5 mg PO NOW STA
Tetanus/Diphth/Acelpertussis [Adacel] 0.5 ml IM .ONCE ONE
07/05/25 20:12
CR Wrist - Left Min 2 Views Urgent
Comment:
Reason For Exam: post reduction
Vital Signs
Initial and Last Documented VS:
Initial Vital Signs
Temp Pulse Resp BP Pulse Ox
98.5 F 100 20 215/118 98
07/05/25 18:44 07/05/25 18:44 07/05/25 18:44 07/05/25 18:44 07/05/25 18:44
Last Documented Vital Signs
Temp Pulse Resp BP Pulse Ox
98.5 F 100 20 207/97 98
07/05/25 18:44 07/05/25 18:44 07/05/25 18:44 07/05/25 20:15 07/05/25 19:20
<Jeff Blevins PA-C - Last Filed: 07/05/25 20:46>
Orders/Labs/Results
Orders:
Orders
07/05/25 18:40
CR Wrist - Left Min 3 Views Urgent
Comment:
Reason For Exam: fell and landed on left wrist
07/05/25 19:20
Ibuprofen [Motrin] 600 mg PO NOW STA
Oxycodone [Roxicodone] 5 mg PO NOW STA
Tetanus/Diphth/Acelpertussis [Adacel] 0.5 ml IM .ONCE ONE
07/05/25 20:12
CR Wrist - Left Min 2 Views Urgent
Comment:
Reason For Exam: post reduction
Vital Signs
Initial and Last Documented VS:
Initial Vital Signs
Temp Pulse Resp BP Pulse Ox
98.5 F 100 20 215/118 98
07/05/25 18:44 07/05/25 18:44 07/05/25 18:44 07/05/25 18:44 07/05/25 18:44
Last Documented Vital Signs
Temp Pulse Resp BP Pulse Ox
98.5 F 100 20 207/97 98
07/05/25 18:44 07/05/25 18:44 07/05/25 18:44 07/05/25 20:15 07/05/25 19:20
<Vasiliy Tee DO - Last Filed: 07/05/25 19:21>
MDM/Problems Addressed
Differential Diagnosis Includes:
Fracture, dislocation, sprain
<DO Stefani Quinn Last Filed: 07/05/25 19:21>
*Pulse Oximetry
SaO2: 98
Oxygen Mode of Delivery: Room air
<Jeff Blevins PA-C - Last Filed: 07/05/25 20:46>
*Pulse Oximetry
Patient hypoxic: no
*Critical Care Note
Total Time (30-74mins, 75-104mins- exclusive of procedures): Not Applicable
<Jeff Blevins PA-C - Last Filed: 07/05/25 20:46>
Update Note
Update Note:
Patient with trip and fall walking the dog fell on left hand. She has a deformed left wrist. Initial x-rays demonstrate impacted and angulated distal radius fracture. I assumed care of the patient. Patient was given hematoma block using 1%
lidocaine half percent Marcaine at the site of the injury. This did provide adequate anesthesia. The fracture was then reduced using weights as countertraction with the hand suspended by the IV pole. The fracture was then reduced by applying
dorsal pressure on the site. A volar splint was applied. Cannot apply a sugar-tong secondary to the AV fistula in her left upper arm she uses for dialysis. Next dialysis appointment is tomorrow. Postreduction films demonstrated significant
improvement in the alignment. She will follow-up with orthopedics
ED Attending Note
<Vasiliy Tee, DO - Last Filed: 07/05/25 19:21>
-
Portions of this chart may have been created with voice recognition software.� Occasional wrong word or��sound alike� substitutions may have occurred due to the inherent limitations of voice recognition software.
Discharge Plan
Departure
Patient Disposition: Home (Routine Discharge)
Date of Disposition: 07/05/25
Time of Disposition: 20:45
Patient with high blood pressure during this ER visit?: No
Discharge Problem:
Distal radius fracture, left
Instructions: Muscle and Bone Pain (DC), Splint Care
Prescriptions:
No Action
carvedilol 25 mg Tablet
25 mg PO MOWEFR@2000
nifedipine 60 mg Tablet Extended Release
60 mg PO HS
Velphoro 500 mg Tablet,Chewable
500 mg PO BID
carvedilol 25 mg tablet
25 mg PO SUTUTHSA@0800,1700
fluticasone propion-salmeterol 250-50 mcg/dose Blister With Device
1 inh INHALATION R BID
levothyroxine 150 mcg Tablet
150 mcg PO DAILY
estradiol 0.01 % (0.1 mg/gram) Cream
1 appful VAGINAL TUSA
ProAir RespiClick 90 mcg/actuation Aerosol Powdr Breath Activated
2 inh INHALATION Q4HPRN PRN (Reason: WHEEZING,SOB)
acetaminophen 325 mg tablet
650 mg PO Q6HPRN PRN (Reason: MILD PAIN)
ferrous sulfate 325 mg (65 mg iron) Tablet
325 mg PO DAILY
Referrals:
Socrates Ledezma MD [Active, Orthopedics]
Cookie Mcdonald MD [Family Provider, Family Practice]
Activity Restrictions/Additional Instructions:
Keep splint on and dry. Elevate for swelling. Use Tylenol for pain. Follow-up with orthopedics for further evaluation
Interventions
Interventions:
*Risk Screen - Suicide Last Done: 07/05/25 18:44
*General Assessment Last Done: 07/05/25 18:47
*Neglect/Abuse Screening Last Done: 07/05/25 18:48
*ED- Fall Risk Assessment Last Done: 07/05/25 18:47
ED-Musculoskeletal Assessment Last Done: 07/05/25 18:47
Discharge Date and Time
Print Language: [id number]
[2025-07-05] MEDS: MOTRIN 600 MG PO (19:28)
[2025-07-05] MEDS: ADACEL 0.5 ML IM (19:29)
[2025-07-05] MEDS: ROXICODONE 5 MG PO (19:29)
[2025-07-05 20:15] VITALS: BP 207/97
[2025-07-05] MEDS: PERCOCET 5/325 1 TABLET PO (21:12)
== END 2025-07-05 21:15 | disposition home or self-care (01) ==
LOC: EMR 18:39
PROVIDERS: EMERGENCY PHYSICIAN Emergency Medicine; FAMILY PHYSICIAN Family Medicine
DX: S52.572A Other intraarticular fracture of lower end of left radius, initial encounter for closed fracture (principal); S52.612A Displaced fracture of left ulna styloid process, initial encounter for closed fracture; S60.415A Abrasion of left ring finger, initial encounter; S60.413A Abrasion of left middle finger, initial encounter; W18.39XA Other fall on same level, initial encounter; Y93.K1 Activity, walking an animal; E03.9 Hypothyroidism, unspecified; I10 Essential (primary) hypertension; J43.9 Emphysema, unspecified; Z87.891 Personal history of nicotine dependence; Z23 Encounter for immunization
CPT/HCPCS: 25605; 99283; 90471; 73100; 73110; 90715

== ENCOUNTER 2025-07-19 06:15 | Day surgery (SDC) | payer OTHER, SELFPAY ==
[2025-07-19] VITALS (9 sets, daily range): BP systolic 137–164; BP diastolic 69–89; BMI 26.3
[2025-07-19] MEDS: TYLENOL 1000 MG PO (08:56)
[2025-07-19] MEDS: CELEBREX 200 MG PO (08:56)
[2025-07-19 09:25] LABS: Hemoglobin 12.6 g/dL (12.0-16.0)
--- NOTE | 2025-07-19 09:29 | PTCARENOTE ---
Nss hung instead of normosol per Anesthesia.
--- NOTE | 2025-07-19 09:43 | PTCARENOTE ---
Per Dr. Guadarrama patients wipe of the L arm does not have to be done due to the large augusto wrap to the L arm.
[2025-07-19 10:19] LABS: Blood Urea Nitrogen 24 mg/dl (7-17); Calcium 10.6 mg/dl (8.4-10.2); Carbon Dioxide 32 mmol/L (22-30); Chloride 97 mmol/L (98-107); Estimated Creatinine Clearance 12 ml/min; Glucose 94 mg/dl (70-99); Potassium 4.1 mmol/L (3.5-5.1); Sodium 138 mmol/L (135-145); eGFR 7.89
--- NOTE | 2025-07-19 10:43 | PTCARENOTE ---
Dr. Farah made aware of Cr of 6.1
[2025-07-19] MEDS: DILAUDID 0.5 MG IV ×2 (11:23→11:34)
[2025-07-19] MEDS: ROXICODONE 5 MG PO (13:18)
== END 2025-07-19 13:37 | disposition home or self-care (01) ==
LOC: SDS 06:15
PROVIDERS: Anesthesiology; ATTENDING PHYSICIAN Orthopaedic Surgery Hand Surgery
DX: S52.552A Other extraarticular fracture of lower end of left radius, initial encounter for closed fracture (principal); X58.XXXA Exposure to other specified factors, initial encounter
CPT/HCPCS: 25607; 80048; 85018; C1713

== ENCOUNTER 2025-09-26 06:23 | Emergency (ER) | payer OTHER, SELFPAY ==
[2025-09-26 06:28] VITALS: BP 226/143
[2025-09-26 06:43] VITALS: BP 216/113
--- NOTE | 2025-09-26 06:47 | ED.GENMED ---
History of Present Illness
General
Chief Complaint: Breathing Problem
Source: patient
Exam Limitations: none
Time Seen by Provider: 09/26/25 06:36
History of Present Illness
History of Present Illness:
50yoF with a history of ESRD on hemodialysis M/W/F, COPD, hypertension, hyperlipidemia, and hypothyroidism presenting for evaluation of shortness of breath. Patient had a respiratory infection last week. She was seen by her PCP on 09/16 and was
started on doxycycline and a prednisone taper. She finished the antibiotic but is still on the prednisone. She took her dog for a walk last night and she started to notice shortness of breath which she attributed to the cold air exposure. She was
having trouble sleeping last night due to dyspnea and she felt a 'gurgling' in her chest. She was on her way to dialysis this morning but did not feel she could make it so came to the ED. She reports a cough that is productive of whitish phlegm.
She has been using her albuterol inhaler but does not feel like the medication is getting into her lungs. She believes her symptoms are from a COPD flare. No chest pain, leg swelling, or fevers. She was last dialyzed on Friday (3 days ago).
Past History
Past History
ED Past Medical History: Asthma (emphysema), COPD, HTN, Renal failure, Hypothyroidism and Other (Emphysema, pneumonia)
ED Past Surgical History: None
Social History
Tobacco: Former smoker
Alcohol: Occasional (Vodka one glass)
Drug: None
Personal: Single
Living: with family
Employment: Employed
Family History
Family History: Hypertension
Phy Exam
General Physical Exam
General Presentation: mild distress
General Skin: warm and dry
General Habitus: normal
General Mental: alert
ENT Exam
ENT Exam: normocephalic
Cardiovascular Exam
Cardiovascular Exam: regular rate/rhythm and no edema
Pulmonary Exam
Pulmonary Exam: generalized wheezing and other (Diffuse wheezing with rhonchi noted. Mildly increased work of breathing. Speaking in full sentences. )
Neurological Exam
Neurological Exam: alert
[place] Coma Scale
Eye Opening: Spontaneous
Verbal Response: Oriented
Motor Response: Obeys Commands
GCS Total Score: 15
Skin Exam
Skin Exam: normal color and warm/dry
Psychiatric Exam
Psychiatric Exam: normal mood/affect
Scores
Heart Failure Risk
Heart Failure Risk Score: Not Applicable
Course
Orders/Labs/Results
Orders:
Orders
09/26/25 06:45
Cardiac Monitoring- Treatment ONCE
Albuterol Sulfate [Ventolin Nebules] 10 mg INH R NOW STA
Ipratropium Nebs [Atrovent Nebules] 1 mg INH R NOW STA
CXR Port [CR Chest Portable - 1 View] Stat
Comment:
Reason For Exam: SOB
Reason Study Needs to be Portable: Unable to Transport
09/26/25 06:46
Electrocardiogram (*1) Urgent
Reason for Study: Shortness of Breath
EKG- Treatment ONCE
09/26/25 07:12
COVID-19 Antigen Urgent
Source: Nasal Swab
Complete Blood Count/With Diff Urgent
Comprehensive Metabolic Panel Urgent
Influenza A+B Rapid Molecular Urgent
OLGA Source: Nasal Swab
Specimen Description:
09/26/25 08:15
Dexamethasone Sod Phosphate [Decadron] 10 mg IV NOW STA
Abnormal Lab Results
09/26/25
07:12
WBC 15.4 H 10^3/uL
(4.8-10.8)
RBC 3.33 L 10^6/uL
(4.20-5.40)
Hgb 11.0 L g/dL
(12.0-16.0)
Hct 33.1 L %
(37.0-47.0)
MCV 99.4 H fL
(81.0-99.0)
MCH 33.0 H pg
(27.0-31.0)
Abs Immat Gran (auto) 0.1 H 10^3/uL
(0-0.05)
Absolute Neuts (auto) 12.4 H 10^3/uL
(1.4-6.5)
Absolute Monos (auto) 0.9 H 10^3/uL
(0.1-0.6)
Immature Gran % 0.6 H %
(0-0.5)
Neutrophils % 80.4 H %
(42.2-75.2)
Lymphocytes % 10.6 L %
(20.5-51.1)
Sodium 130 L mmol/L
(135-145)
Potassium 5.2 H mmol/L
(3.5-5.1)
Chloride 95 L mmol/L
(98-107)
BUN 75 H mg/dl
(7-17)
Creatinine 7.3 H* mg/dL
(0.6-1.0)
Calcium 8.3 L mg/dl
(8.4-10.2)
Total Bilirubin 1.5 H mg/dl
(0.2-1.3)
09/26/25 07:12
09/26/25 07:12
Vital Signs
Initial and Last Documented VS:
Initial Vital Signs
Temp Pulse Resp BP Pulse Ox
97.6 F 97 20 226/143 99
09/26/25 06:28 09/26/25 06:28 09/26/25 06:28 09/26/25 06:28 09/26/25 06:28
Last Documented Vital Signs
Temp Pulse Resp BP Pulse Ox
97.6 F 85 15 209/101 96
09/26/25 06:28 09/26/25 09:15 09/26/25 09:15 09/26/25 09:00 09/26/25 09:15
MDM/Problems Addressed
Differential Diagnosis Includes:
50yoF here with SOB. Currently on prednisone taper for respiratory infection but almost finished. SOB started worsening last night. Hx of COPD and she feels this is a COPD flare. Also has hx of ESRD on HD and is due for dialysis today. Patient
hypertensive in triage with otherwise stable vitals. No signs of volume overload on exam. Diffuse wheezing and rhonchi noted. Differential diagnosis includes but is not limited to: COPD exacerbation, bronchitis, pneumonia, pulmonary edema
Initial ED plan: Check CBC, CMP, COVID/flu swab, EKG, and CXR. Give hour long neb treatment and reassess.
*Pulse Oximetry
SaO2: 97
Oxygen Mode of Delivery: Room air
Patient hypoxic: no
*EKG
Interpreted by ED Provider?: Yes
EKG Intrepretation Date: 09/26/25
Heart Rate: 91
Rate: normal
Rhythm: sinus
[place]: normal axis
QRS Pattern: poor R-wave progression
Ischemia: no ischemia
*Critical Care Note
Total Time (30-74mins, 75-104mins- exclusive of procedures): Not Applicable
Update Note
Update Note:
Viral testing negative. Labs reveal a leukocytosis with a white count 12.4 which may be secondary to steroids as she is currently on prednisone. Potassium 5.2. Chest x-ray is clear without pulmonary edema or signs of pneumonia. Patient feeling
significantly improved after neb treatment. She was reassessed several times and wheezing resolved. No episodes of hypoxia throughout ED stay. Patient feels well for discharge. Presentation consistent with a COPD exacerbation. Dose of IV
Decadron given in ED and prednisone taper was restarted. She has a prescription from her PCP for a nebulizer machine but she has not picked this up yet. She has albuterol neb solution at home. She was advised to follow-up closely with her PCP and
call her dialysis center to see if they are able to dialyze her later today. ED return precautions reviewed and she was discharged in stable condition.
ED Attending Note
-
Portions of this chart may have been created with voice recognition software.� Occasional wrong word or��sound alike� substitutions may have occurred due to the inherent limitations of voice recognition software.
Discharge Plan
Departure
Patient Disposition: Home (Routine Discharge)
Date of Disposition: 09/26/25
Time of Disposition: 09:46
Patient with high blood pressure during this ER visit?: Yes
Discharge Problem:
COPD with acute exacerbation
Instructions: COPD exacerbation (DC)
Prescriptions:
New
prednisone 10 mg tablet
10 mg PO DAILY Qty: 20 0RF
Rx Instructions:
Take 40mg PO daily x 2 days, 30mg x 2 days, 20mg x 2 days, and 10mg x 2 days.
No Action
carvedilol 25 mg Tablet
25 mg PO MOWEFR@2000
nifedipine 60 mg Tablet Extended Release
60 mg PO HS
Velphoro 500 mg Tablet,Chewable
500 mg PO AC
carvedilol 25 mg tablet
25 mg PO SUTUTHSA@0800,1700
levothyroxine 150 mcg Tablet
150 mcg PO DAILY
ProAir RespiClick 90 mcg/actuation Aerosol Powdr Breath Activated
2 inh INHALATION R Q4HPRN PRN (Reason: WHEEZING,SOB)
ferrous sulfate 325 mg (65 mg iron) Tablet
325 mg PO DAILY
cinacalcet [Sensipar] 60 mg Tablet
60 mg PO DAILY
Referrals:
Cookie Mcdonald MD [Family Provider, Family Practice]
Activity Restrictions/Additional Instructions:
Restart prednisone taper as prescribed. Next dose is due tomorrow. Use inhaler and nebulizer treatments as needed for wheezing/chest tightness.
You should call your dialysis center to see if they are able to dialyze you today.
Please follow-up with your family doctor within the next 72 hours. Return to the ER immediately with any new or worsening symptoms.
Interventions
Interventions:
*Risk Screen - Suicide Last Done: 09/26/25 06:28
*General Assessment Last Done: 09/26/25 06:28
*Neglect/Abuse Screening Last Done: 09/26/25 06:28
*ED- Fall Risk Assessment Last Done: 09/26/25 07:16
*ED COVID-19 Vaccine History Last Done: 09/26/25 07:16
*ED Influenza Vaccine History Last Done: 09/26/25 07:16
*Nursing Disposition Last Done: 09/26/25 10:01
ED- Cardiac Assessment Last Done: 09/26/25 07:16
ED- Pulmonary Assessment Last Done: 09/26/25 07:16
Discharge Date and Time
Discharge Date/Time: 09/26/25 10:04
Print Language: HEBREW
[2025-09-26 07:11] VITALS: BP 201/104
[2025-09-26] MEDS: VENTOLIN NEBULES 10 MG INH (07:14)
[2025-09-26] MEDS: ATROVENT NEBULES 1 MG INH (07:14)
[2025-09-26 07:15] VITALS: BMI 27.4
[2025-09-26 07:22] LABS: Hematocrit 33.1 % (37.0-47.0); Hemoglobin 11.0 g/dL (12.0-16.0); Mean Corp Hgb Conc. 33.2 g/dL (33.0-37.0); Mean Corpuscular Volume 99.4 fL (81.0-99.0); Nucleated Red Blood Cells % 0 %; Platelet Count 201 10^3/uL (130-400); Red Cell Dist. Width 13.5 % (11.5-14.5)
[2025-09-26 07:40] LABS: COVID-19 Antigen Negative (Negative)
[2025-09-26 08:00] VITALS: BP 204/102
[2025-09-26 08:05] LABS: ALT (SGPT) 23 U/L (0-35); AST (SGOT) 20 U/L (14-36); Albumin 4.1 g/dl (3.5-5.0); Alkaline Phosphatase 57 U/L (38-126); Blood Urea Nitrogen 75 mg/dl (7-17); Calcium 8.3 mg/dl (8.4-10.2); Carbon Dioxide 22 mmol/L (22-30); Chloride 95 mmol/L (98-107); Estimated Creatinine Clearance 10 ml/min; Glucose 70 mg/dl (70-99); Potassium 5.2 mmol/L (3.5-5.1); Sodium 130 mmol/L (135-145); Total Protein 7.0 g/dl (6.3-8.2); eGFR 6.32
[2025-09-26] MEDS: DECADRON 10 MG IV (08:23)
[2025-09-26 09:00] VITALS: BP 209/101
== END 2025-09-26 10:04 | disposition home or self-care (01) ==
LOC: EMR 06:23
PROVIDERS: Physician Assistant; EMERGENCY PHYSICIAN Emergency Medicine; FAMILY PHYSICIAN Family Medicine
DX: J44.1 Chronic obstructive pulmonary disease with (acute) exacerbation (principal); I12.0 Hypertensive chronic kidney disease with stage 5 chronic kidney disease or end stage renal disease; N18.6 End stage renal disease; J43.8 Other emphysema; E78.00 Pure hypercholesterolemia, unspecified; E03.9 Hypothyroidism, unspecified; Z82.49 Family history of ischemic heart disease and other diseases of the circulatory system; Z87.01 Personal history of pneumonia (recurrent); Z87.891 Personal history of nicotine dependence; Z99.2 Dependence on renal dialysis
CPT/HCPCS: 99284; 94640; 96374; 71045; 80053; 85025; 87502; 87811; 93005